=== PATIENT | female | born 1940 | race Two or more races ===

== ENCOUNTER 2018-09-26 09:26 | Inpatient (IN) | payer MEDICARE, MEDICAID ==
[~2018-09-26] VITALS: Ht 154.9 cm; Wt 83.0 kg
[2018-09-26] MEDS ORDERED: Sodium Chloride 500ML 500 ML IV ONE (09:47)
[2018-09-26 09:48] VITALS: BP 148/81
[2018-09-26] MEDS ORDERED: LORazepam Inj 2mg/ml 1ml IV ONE (10:00)
[2018-09-26 10:04] LABS: BASOPHILS % (AUTO) 0.6 % (0.0-2.0); EOSINOPHILS % (AUTO) 2.4 % (0.0-3.0); HEMATOCRIT 37.8 % (37.0-47.0); HEMOGLOBIN 12.6 G/DL (12.0-16.0); LYMPHOCYTES % (AUTO) 19.2 % (20.0-45.0); MEAN CORPUSCULAR VOLUME 87 FL (80-99); MONOCYTES % (AUTO) 6.9 % (1.0-10.0); PLATELET COUNT 142 K/UL (150-450); RED BLOOD COUNT 4.35 M/UL (4.20-5.40); RED CELL DISTRIBUTION WIDTH 13.9 % (11.6-14.8); WHITE BLOOD COUNT 5.5 K/UL (4.8-10.8)
--- NOTE | 2018-09-26 10:04 | Emergency Room Report ---
History of Present Illness General Chief Complaint: Multiple Trauma/Fall Source: Patient Present Illness HPI Patient presents with complaints of a fall Initially reports that she is to be seen by a female physician I did notify her that there is no other female physician on duty And that for the patient agree to evaluation and exam Patient is somewhat of a poor historian Reports that her knee gave out and she sustained a fall Patient also reports that she is at a boarding care facility And was brought in by private auto Denies any lapse of consciousness Patient feels extremely tremulous Has pain to the right knee and leg as well Along with the obvious facial trauma and discomfort Patient cannot provide medical history Cannot provide history of medications Allergies: Coded Allergies: No Known Allergies (Unverified , 09/26/18) Patient History Past Medical History: see triage record Pertinent Family History: none Last Menstrual Period: None Now: No Reviewed Nursing Documentation: PMH: Agreed; PSxH: Agreed Nursing Documentation-PMH Past Medical History: No Stated History Review of Systems All Other Systems: limited - Other than the ones mentioned in the history of present illness all others are reviewed however they do stay limited due to the patient's mental status Physical Exam Vital Signs Date Time Temp Pulse Resp B/P (MAP) Pulse Ox O2 Delivery O2 Flow Rate FiO2 09/26/18 09:35 97.5 71 22 143/108 100 Room Air 09/26/18 09:48 98 Sp02 EP Interpretation: reviewed, normal General Appearance: mild distress - Appears tremulous Head: other - Obvious trauma with laceration to the nasal bridge ENT: dry mucus membranes Neck: full range of motion, supple Respiratory: lungs clear, normal breath sounds, no retraction, no accessory muscle use Cardiovascular #1: regular rate, rhythm Gastrointestinal: non tender, soft Musculoskeletal: other - Moves both upper extremities equally, has tenderness palpated on the right knee and tib fib midline on the right side Neurologic: alert, oriented x3, responsive, other - Equal furniture sales consultant bilaterally, however has baseline tremor diffusely on all extremities Skin: other - Deep approximately 1 cm laceration nasal bridge Lymphatic: no adenopathy Procedures Laceration/Wound Repair Laceration/Wound Repair : Consent: Emergent Wound Location: face Wound's Depth, Shape: into muscle, irregular Wound Length (cm): 1 Wound Explored: contaminated Irrigated w/ Saline (ccs): 300 Betadine Prep?: Yes Anesthesia: 1% Lidocaine Volume Anesthetic (ccs): 3 Wound Debrided: moderate Wound Repaired With: sutures Suture Size/Type: 5:0 Number of Sutures: 4 Splint Applied?: No Patient Tolerated: Well Complications: None Medical Decision Making Diagnostic Impression: Primary Impression: Multiple injuries due to trauma Additional Impressions: Open nasal fracture Contusion Near syncope ER Course Patient is a fairly complex patient with multiple differential to consideration including but not limited to cardiac cardiopulmonary and vascular emergencies Given the patient's fairly moderate facial trauma Head CT along with facial CT was obtained as well There is obvious comminuted fracture complex involving the facial area Blood work otherwise is at benign levels Patient further hydrated Requiring specialty consultation and medicine coverage Plastic specialty has been contacted Labs Test 09/26/18 09:55 09/26/18 11:10 White Blood Count 5.5 K/UL (4.8-10.8) Red Blood Count 4.35 M/UL (4.20-5.40) Hemoglobin 12.6 G/DL (12.0-16.0) Hematocrit 37.8 % (37.0-47.0) Mean Corpuscular Volume 87 FL (80-99) Mean Corpuscular Hemoglobin 28.9 PG (27.0-31.0) Mean Corpuscular Hemoglobin Concent 33.2 G/DL (32.0-36.0) Red Cell Distribution Width 13.9 % (11.6-14.8) Platelet Count 142 K/UL (150-450) Mean Platelet Volume 5.9 FL (6.5-10.1) Neutrophils (%) (Auto) 71.0 % (45.0-75.0) Lymphocytes (%) (Auto) 19.2 % (20.0-45.0) Monocytes (%) (Auto) 6.9 % (1.0-10.0) Eosinophils (%) (Auto) 2.4 % (0.0-3.0) Basophils (%) (Auto) 0.6 % (0.0-2.0) Sodium Level 140 MMOL/L (136-145) Potassium Level 4.2 MMOL/L (3.5-5.1) Chloride Level 103 MMOL/L (98-107) Carbon Dioxide Level 28 MMOL/L (21-32) Anion Gap 10 mmol/L (5-15) Blood Urea Nitrogen 34 mg/dL (7-18) Creatinine 2.1 MG/DL (0.55-1.30) Estimat Glomerular Filtration Rate mL/min (>60) Glucose Level 132 MG/DL (74-106) Calcium Level 9.1 MG/DL (8.5-10.1) Total Bilirubin 0.6 MG/DL (0.2-1.0) Aspartate Amino Transf (AST/SGOT) 24 U/L (15-37) Alanine Aminotransferase (ALT/SGPT) 17 U/L (12-78) Alkaline Phosphatase 83 U/L (46-116) Total Creatine Kinase 124 U/L (26-308) Creatine Kinase MB 1.0 NG/ML (0.0-3.6) Creatine Kinase MB Relative Index 0.8 Troponin I 0.000 ng/mL (0.000-0.056) Total Protein 7.9 G/DL (6.4-8.2) Albumin 3.8 G/DL (3.4-5.0) Globulin 4.1 g/dL Albumin/Globulin Ratio 0.9 (1.0-2.7) Lipase 294 U/L (73-393) Urine Color Pale yellow Urine Appearance Clear Urine pH 5 (4.5-8.0) Urine Specific [place] 1.010 (1.005-1.035) Urine Protein 1+ (NEGATIVE) Urine Glucose (UA) Negative (NEGATIVE) Urine Ketones Negative (NEGATIVE) Urine Blood Negative (NEGATIVE) Urine Nitrite Negative (NEGATIVE) Urine Bilirubin Negative (NEGATIVE) Urine Urobilinogen Normal MG/DL (0.0-1.0) Urine Leukocyte Esterase Negative (NEGATIVE) Urine RBC 0 /HPF (0 - 2) Urine WBC 0 /HPF (0 - 2) Urine Squamous Epithelial Cells Occasional /LPF Urine Bacteria None /HPF (NONE) EKG Diagnostic Results Rate: normal Rhythm: NSR ST Segments: no acute changes Rhythm Strip Diag. Results EP Interpretation: yes Rate: 67 Rhythm: NSR, no PVC's, no ectopy Chest X-Ray Diagnostic Results Chest X-Ray Diagnostic Results : Chest X-Ray Ordered: Yes # of Views/Limited/Complete: 1 View Indication: Chest Pain EP Interpretation: Yes Interpretation: no consolidation, no effusion, no pneumothorax, other - Cardiomegaly, possible body habitus, cannot evaluate fully bilateral lower lungs Impression: No acute disease - Limited study Electronically Signed by: Christian Dillon DO Other X-Ray Diagnostic Results Other X-Ray Diagnostic Results #1: X-Ray ordered: Right tib fib # of Views/Limited Vs Complete: 2 View Indication: Pain EP Interpretation: Yes Interpretation: no dislocation, no soft tissue swelling, no fractures Impression: No acute disease - Significant previous history Electronically Signed by: Christian Dillon DO Other X-Ray Diagnostic Results #2: X-Ray ordered: Right knee # of Views/Limited Vs Complete: 4 View Indication: Pain EP Interpretation: Yes Interpretation: no dislocation, no soft tissue swelling, no fractures Impression: No acute disease Electronically Signed by: Christian Dillon DO CT/MRI/US Diagnostic Results CT/MRI/US Diagnostic Results : Impression CT headno acute disease CT facialIMPRESSION: Fracture of bilateral nasal bone and nasal process of the maxilla with extension into the nasal septum. Edema and blood is seen along the nasal septum. Last Vital Signs Date Time Temp Pulse Resp B/P (MAP) Pulse Ox O2 Delivery O2 Flow Rate FiO2 09/26/18 09:48 72 17 Room Air 98 09/26/18 09:48 97.5 148/81 98 Status: improved Disposition: ADMITTED INPATIENT Condition: Serious Referrals: NOT CHOSEN IPA/,REFERRING (PCP) Christian Dillon DO Sep 26, 2018 10:04
[2018-09-26 10:12] LABS: ANION GAP 10 mmol/L (5-15); BLOOD UREA NITROGEN 34 mg/dL (7-18); CALCIUM 9.1 MG/DL (8.5-10.1); CARBON DIOXIDE 28 MMOL/L (21-32); CHLORIDE 103 MMOL/L (98-107); CREATININE 2.1 MG/DL (0.55-1.30); POTASSIUM 4.2 MMOL/L (3.5-5.1); SODIUM 140 MMOL/L (136-145)
[2018-09-26 10:28] LABS: ALANINE AMINOTRANSFERASE 17 U/L (12-78); ALBUMIN 3.8 G/DL (3.4-5.0); ALBUMIN/GLOBULIN RATIO 0.9 (1.0-2.7); ALKALINE PHOSPHATASE 83 U/L (46-116); ASPARTATE AMINO TRANSFERASE 24 U/L (15-37); BILIRUBIN,TOTAL 0.6 MG/DL (0.2-1.0); CREATINE KINASE 124 U/L (26-308)
[2018-09-26] MEDS ORDERED: ceFAZolin 1gm/50ml Premix 50 ML IV ONE (11:00)
--- NOTE | 2018-09-26 11:14 | Diagnostic Imaging Report ---
INDICATION: Trauma TECHNIQUE: Multiple, contiguous 2.5 mm axial cuts of the brain are obtained from the posterior fossa to the cranial vault. Sagittal and coronal reformatted images provided. No IV contrast is administered. One or more of the following dose reduction techniques were used: automated exposure control, adjustment of the mA and/or kV according to patient size, use of iterative reconstruction technique. COMPARISON: None FINDINGS: No intracranial hemorrhage, abnormal intra- or extra-axial collections or parenchymal lesions are seen. There are involutional changes with prominence of the sulci, basal cisterns and ventricles. Scattered white matter hypoattenuations are present, likely from small vessel disease. The baca-white differentiation is preserved. No evidence of mass effect, midline shift, or edema. The osseous structures are unremarkable. The visualized portions of the paranasal sinuses are clear. Atherosclerotic vascular disease. IMPRESSION: 1. No acute intracranial process. 2. Involutional changes with small vessel disease. CTDI: 70.38 mGy DLP: 1298.45 mGycm
[2018-09-26 11:23] LABS: APPEARANCE,URINE CLEAR; BILIRUBIN, URINE NEGATIVE (NEGATIVE); COLOR,URINE PALE YELLOW; GLUCOSE, URINE (UA) NEGATIVE (NEGATIVE); KETONES,URINE NEGATIVE (NEGATIVE); LEUKOCYTE ESTERASE ,URINE NEGATIVE (NEGATIVE); NITRITE,URINE NEGATIVE (NEGATIVE); PH,URINE 5 (4.5-8.0); PROTEIN,URINE 1+ (NEGATIVE); UROBILINOGEN,URINE NORMAL MG/DL (0.0-1.0)
[2018-09-26] MEDS ORDERED: Hydrogen Peroxide 473ml Bottle TOPIC ONE (11:25)
--- NOTE | 2018-09-26 11:57 | Diagnostic Imaging Report ---
INDICATION: Trauma TECHNIQUE: Multiple, contiguous 2.5 mm axial cuts of the paranasal sinuses are obtained. Sagittal and coronal reformatted images are provided. No IV contrast is administered. COMPARISON: None FINDINGS: Fracture of bilateral nasal bone and nasal process of the maxilla with extension into the nasal septum. Edema and blood is seen along the nasal septum. The maxillary, ethmoid, sphenoid and frontal sinuses are clear bilaterally. There is no mucoperiosteal thickening or air-fluid levels. The osteomeatal units are well aerated bilaterally. The turbinates are normal. The nasal septum is midline. No bony erosions are seen. 5 mm ossific density at the left temporomandibular joint. Paranasal soft tissue swelling. IMPRESSION: Fracture of bilateral nasal bone and nasal process of the maxilla with extension into the nasal septum. Edema and blood is seen along the nasal septum. CTDI: 28.19 mGy DLP: 56.42 mGycm
[2018-09-26 12:07] VITALS: BP 126/71
--- NOTE | 2018-09-26 12:12 | Diagnostic Imaging Report ---
INDICATION: Chest pain COMPARISON: None FINDINGS: Single frontal view demonstrates prominent cardiac size. Hypoventilatory examination with compensatory compressive changes at the bases. No pleural effusions. The visualized osseous structures are within normal limits. IMPRESSION: Normal hypoventilatory examination.
--- NOTE | 2018-09-26 12:25 | Diagnostic Imaging Report ---
RIGHT TIB/FIB, 2 VIEWS INDICATION: Chest pain COMPARISON: None FINDINGS: 2 views of the right tibia and fibula are obtained. The patient is status post total knee arthroplasty. The hardware is radiographically intact. Stimulators are seen at the level distal femur. Bony structures are intact. Bone mineralization is within normal limits. Soft tissues within normal limits. No radio-opaque foreign bodies seen. IMPRESSION: Status post total knee arthroplasty. No acute fracture.
[2018-09-26 13:40] VITALS: BP 146/62
--- NOTE | 2018-09-26 13:58 | Diagnostic Imaging Report ---
RIGHT KNEE, Views INDICATION: Pain COMPARISON: None FINDINGS: 4 views of the right knee are obtained. Status post right knee total arthroplasty. Stimulator leads are seen in place. Hardware is radiographically intact. Bony structures are intact. Bone mineralization is within normal limits. Joint spaces are preserved. Soft tissues are within normal limits. No radio-opaque foreign bodies. IMPRESSION: Status post right knee total arthroplasty. Hardware is intact. No acute fracture or subluxation identified.
[2018-09-26] MEDS ORDERED: SEROQUEL50 MG ORAL (15:33)
[2018-09-26] MEDS ORDERED: OLANZAPINE7.5 MG ORAL (15:33)
[2018-09-26] MEDS ORDERED: POTASSIUM CHLO20 ME3 PO (15:33)
[2018-09-26] MEDS ORDERED: OXYCODONE H5 MG/5 ML ORAL (15:33)
[2018-09-26] MEDS ORDERED: OXYBUTYNIN CHLOR5 M1 ORAL (15:34)
[2018-09-26] MEDS ORDERED: PANTOPRAZOLE SO20 MG ORAL (15:35)
[2018-09-26] MEDS ORDERED: FAMOTIDINE20 MG ORAL (15:37)
[2018-09-26] MEDS ORDERED: MOBIC15 MG ORAL (15:37)
[2018-09-26] MEDS ORDERED: LISINOPRIL20 MG ORAL (15:37)
[2018-09-26] MEDS ORDERED: FUROSEMIDE40 MG ORAL (15:37)
[2018-09-26] MEDS ORDERED: GABAPENTIN400 MG ORAL (15:37)
[2018-09-26 16:00] VITALS: BP 122/89
[2018-09-26] MEDS: oxyCODONE 5mg IR tab ORAL PRN (17:13)
[2018-09-26] MEDS ORDERED: Bisacodyl EC 5mg tab ORAL PRN (17:45)
--- NOTE | 2018-09-26 18:06 | Cardiology Progress Note ---
Assessment/Plan Assessment/Plan The patient is seen and examined, full consult note will be dictated soon. Objective Last 24 Hour Vital Signs Date Time Temp Pulse Resp B/P (MAP) Pulse Ox O2 Delivery O2 Flow Rate FiO2 09/26/18 16:14 Room Air 09/26/18 16:00 97.9 74 20 122/89 (100) 95 09/26/18 16:00 68 09/26/18 13:40 97.0 77 20 146/62 (90) 97 09/26/18 13:27 74 09/26/18 13:18 97.7 69 27 147/88 100 Room Air 09/26/18 12:07 65 22 126/71 95 Room Air 09/26/18 09:48 72 17 Room Air 98 09/26/18 09:48 97.5 72 17 148/81 98 Room Air 09/26/18 09:35 97.5 71 22 143/108 100 Room Air Laboratory Tests Test 09/26/18 09:55 09/26/18 11:10 White Blood Count 5.5 K/UL (4.8-10.8) Red Blood Count 4.35 M/UL (4.20-5.40) Hemoglobin 12.6 G/DL (12.0-16.0) Hematocrit 37.8 % (37.0-47.0) Mean Corpuscular Volume 87 FL (80-99) Mean Corpuscular Hemoglobin 28.9 PG (27.0-31.0) Mean Corpuscular Hemoglobin Concent 33.2 G/DL (32.0-36.0) Red Cell Distribution Width 13.9 % (11.6-14.8) Platelet Count 142 K/UL (150-450) L Mean Platelet Volume 5.9 FL (6.5-10.1) L Neutrophils (%) (Auto) 71.0 % (45.0-75.0) Lymphocytes (%) (Auto) 19.2 % (20.0-45.0) L Monocytes (%) (Auto) 6.9 % (1.0-10.0) Eosinophils (%) (Auto) 2.4 % (0.0-3.0) Basophils (%) (Auto) 0.6 % (0.0-2.0) Sodium Level 140 MMOL/L (136-145) Potassium Level 4.2 MMOL/L (3.5-5.1) Chloride Level 103 MMOL/L (98-107) Carbon Dioxide Level 28 MMOL/L (21-32) Anion Gap 10 mmol/L (5-15) Blood Urea Nitrogen 34 mg/dL (7-18) H Creatinine 2.1 MG/DL (0.55-1.30) H Estimat Glomerular Filtration Rate mL/min (>60) Glucose Level 132 MG/DL (74-106) H Calcium Level 9.1 MG/DL (8.5-10.1) Total Bilirubin 0.6 MG/DL (0.2-1.0) Aspartate Amino Transf (AST/SGOT) 24 U/L (15-37) Alanine Aminotransferase (ALT/SGPT) 17 U/L (12-78) Alkaline Phosphatase 83 U/L (46-116) Total Creatine Kinase 124 U/L (26-308) Creatine Kinase MB 1.0 NG/ML (0.0-3.6) Creatine Kinase MB Relative Index 0.8 Troponin I 0.000 ng/mL (0.000-0.056) Total Protein 7.9 G/DL (6.4-8.2) Albumin 3.8 G/DL (3.4-5.0) Globulin 4.1 g/dL Albumin/Globulin Ratio 0.9 (1.0-2.7) L Lipase 294 U/L (73-393) Urine Color Pale yellow Urine Appearance Clear Urine pH 5 (4.5-8.0) Urine Specific [place] 1.010 (1.005-1.035) Urine Protein 1+ (NEGATIVE) H Urine Glucose (UA) Negative (NEGATIVE) Urine Ketones Negative (NEGATIVE) Urine Blood Negative (NEGATIVE) Urine Nitrite Negative (NEGATIVE) Urine Bilirubin Negative (NEGATIVE) Urine Urobilinogen Normal MG/DL (0.0-1.0) Urine Leukocyte Esterase Negative (NEGATIVE) Urine RBC 0 /HPF (0 - 2) Urine WBC 0 /HPF (0 - 2) Urine Squamous Epithelial Cells Occasional /LPF Urine Bacteria None /HPF (NONE) Christiano Robles MD Sep 26, 2018 18:06
[2018-09-26 20:00] VITALS: BP 116/78
[2018-09-26] MEDS ORDERED: Enoxaparin 40mg Inj SUBQ SCH (21:00)
[2018-09-27] VITALS: BP 102/58
--- NOTE | 2018-09-27 00:18 | History & Physical ---
History and Physical History & Physicial Patient is seen and examined. Dictation completed # ##[id number] Kamini Garcia MD Sep 27, 2018 00:18
--- NOTE | 2018-09-27 00:20 | General Progress Note ---
Assessment/Plan Assessment/Plan S: my nose hurts O: appears to have balance problem, Pain is well managed PHYSICAL EXAMINATION:HEAD AND NECK: Atraumatic and normocephalic. Positive for the posttraumatic fracture lines and changes in the nasal region.CHEST: Clear to auscultation. HEART: S1, S2. Regular rate and rhythm.ABDOMEN: Soft. No organomegaly. MUSCULOSKELETAL: No gross focal motor deficit. NEUROLOGIC: Awake, alert, and oriented x3. Meds: reviewed and reconciled in the chart ASSESSMENT: 1. Acute encephalopathy, likely possibility of the cardiovascular insufficiency. Sepsis cannot be excluded. 2. Renal failure, age indeterminate. 3. Hypertension. 4. Psychiatric disorder. 5. Abnormal blood sugar. 6. Thrombocytopenia. 7. Right-sided chronic knee pain. 8. GI and DVT prophylaxis. Plan: Will consult PT/OT high risk for fall Subjective Allergies: Coded Allergies: No Known Allergies (Unverified , 09/26/18) Objective Last 24 Hour Vital Signs Date Time Temp Pulse Resp B/P (MAP) Pulse Ox O2 Delivery O2 Flow Rate FiO2 09/26/18 21:00 Room Air 09/26/18 20:00 97.5 76 18 116/78 (91) 95 09/26/18 20:00 81 09/26/18 16:14 Room Air 09/26/18 16:00 97.9 74 20 122/89 (100) 95 09/26/18 16:00 68 09/26/18 13:40 97.0 77 20 146/62 (90) 97 09/26/18 13:27 74 09/26/18 13:18 97.7 69 27 147/88 100 Room Air 09/26/18 12:07 65 22 126/71 95 Room Air 09/26/18 09:48 72 17 Room Air 98 09/26/18 09:48 97.5 72 17 148/81 98 Room Air 09/26/18 09:35 97.5 71 22 143/108 100 Room Air Intake and Output 09/26/18 09/27/18 19:00 07:00 Intake Total 360 ml Balance 360 ml Intake Oral 360 ml # Voids 2 Laboratory Tests 09/26/18 09:55: White Blood Count 5.5, Red Blood Count 4.35, Hemoglobin 12.6, Hematocrit 37.8, Mean Corpuscular Volume 87, Mean Corpuscular Hemoglobin 28.9, Mean Corpuscular Hemoglobin Concent 33.2, Red Cell Distribution Width 13.9, Platelet Count 142L, Mean Platelet Volume 5.9L, Neutrophils (%) (Auto) 71.0, Lymphocytes (%) (Auto) 19.2L, Monocytes (%) (Auto) 6.9, Eosinophils (%) (Auto) 2.4, Basophils (%) (Auto ) 0.6, Sodium Level 140, Potassium Level 4.2, Chloride Level 103, Carbon Dioxide Level 28, Anion Gap 10, Blood Urea Nitrogen 34H, Creatinine 2.1H, Estimat Glomerular Filtration Rate , Glucose Level 132H, Calcium Level 9.1, Total Bilirubin 0.6, Aspartate Amino Transf (AST/SGOT) 24, Alanine Aminotransferase (ALT/SGPT) 17, Alkaline Phosphatase 83, Total Creatine Kinase 124, Creatine Kinase MB 1.0, Creatine Kinase MB Relative Index 0.8, Troponin I 0.000, Total Protein 7.9, Albumin 3.8, Globulin 4.1, Albumin/Globulin Ratio 0.9L , Lipase 294 09/26/18 11:10: Urine Color Pale yellow, Urine Appearance Clear, Urine pH 5, Urine Specific [place] 1.010, Urine Protein 1+H, Urine Glucose (UA) Negative, Urine Ketones Negative, Urine Blood Negative, Urine Nitrite Negative, Urine Bilirubin Negative , Urine Urobilinogen Normal, Urine Leukocyte Esterase Negative, Urine RBC 0, Urine WBC 0, Urine Squamous Epithelial Cells Occasional, Urine Bacteria None 09/26/18 20:34: Troponin I 0.000 Height (Feet): 5 Height (Inches): 1.00 Weight (Pounds): 183 Kamini Garcia MD Sep 27, 2018 00:20
--- NOTE | 2018-09-27 03:45 | History and Physical Report ---
DATE OF ADMISSION: 09/26/2018 SOURCE OF INFORMATION: The patient and EMR. HISTORY OF PRESENT ILLNESS: The patient is a 78-year-old female who presented with lightheadedness followed by hitting her head against an object. The patient denies any loss of consciousness. The patient denies any nausea, vomitus, diarrhea, constipation prior to this incident. The patient is complaining of pain in the right knee. REVIEW OF SYSTEMS: All 12 elements of review of systems reviewed. Pertinent positive and negative as above. PAST MEDICAL AND SURGICAL HISTORY: Right-sided knee surgeries, hypertension, chronic pain, urinary incontinence, psychiatric disorder. ALLERGIES: NKDA. FAMILY HISTORY: Reviewed, noncontributory. SOCIAL HISTORY: The patient lives by herself. Denies history of illicit drug abuse, smoking, or alcohol abuse. PHYSICAL EXAMINATION: VITAL SIGNS: Blood pressure 140/80, temperature 98.2, pulse oximetry 98% on room air, respiratory rate 18. HEAD AND NECK: Atraumatic and normocephalic. Positive for the posttraumatic fracture lines and changes in the nasal region. CHEST: Clear to auscultation. HEART: S1, S2. Regular rate and rhythm. ABDOMEN: Soft. No organomegaly. MUSCULOSKELETAL: No gross focal motor deficit. NEUROLOGIC: Awake, alert, and oriented x3. IMAGING: Chest x-ray dated September 26, is unremarkable. The CT scan of the head shows fracture of bilateral nasal bones and maxilla. The head CT done is negative for any active acute pathology in the cranium. LABORATORY DATA: Dated September 26 shows sodium 140, potassium 4.2, BUN 34, and creatinine 2.1. WBC 5.5, hemoglobin 12.6, platelet count of 142,000. ASSESSMENT: 1. Acute encephalopathy, likely possibility of the cardiovascular insufficiency. Sepsis cannot be excluded. 2. Renal failure, age indeterminate. 3. Hypertension. 4. Psychiatric disorder. 5. Abnormal blood sugar. 6. Thrombocytopenia. 7. Right-sided chronic knee pain. 8. GI and DVT prophylaxis. PLAN OF CARE: We will consult the Psychiatry, Nephrology, and Cardiology. We will resume the home medications. I will stop the Lasix, lisinopril, and potassium, and we will optimize medications. Kamini Garcia M.D. DR: Danial JOB#: [id number] CC:
[2018-09-27 04:00] VITALS: BP 115/74
[2018-09-27 07:48] LABS: BASOPHILS % (AUTO) 0.7 % (0.0-2.0); EOSINOPHILS % (AUTO) 1.6 % (0.0-3.0); HEMATOCRIT 35.6 % (37.0-47.0); LYMPHOCYTES % (AUTO) 23.4 % (20.0-45.0); MEAN CORPUSCULAR VOLUME 87 FL (80-99); MONOCYTES % (AUTO) 7.3 % (1.0-10.0); PLATELET COUNT 156 K/UL (150-450); RED BLOOD COUNT 4.12 M/UL (4.20-5.40); WHITE BLOOD COUNT 4.1 K/UL (4.8-10.8)
[2018-09-27 08:00] VITALS: BP 120/68
[2018-09-27 08:18] LABS: ANION GAP 8 mmol/L (5-15); BLOOD UREA NITROGEN 26 mg/dL (7-18); CALCIUM 9.3 MG/DL (8.5-10.1); CARBON DIOXIDE 33 MMOL/L (21-32); CHLORIDE 101 MMOL/L (98-107); CREATININE 1.4 MG/DL (0.55-1.30); POTASSIUM 4.2 MMOL/L (3.5-5.1); SODIUM 141 MMOL/L (136-145)
[2018-09-27] MEDS: Aspirin Baby 81mg ORAL SCH (08:20)
[2018-09-27] MEDS: Oxybutynin 5mg tab ORAL SCH (08:21)
[2018-09-27] MEDS: oxyCODONE 5mg IR tab ORAL PRN ×2 (08:23→17:37)
[2018-09-27] MEDS ORDERED: Meloxicam 15 MG TAB ORAL SCH (09:00)
[2018-09-27] MEDS ORDERED: Lisinopril 20mg tab ORAL SCH (09:00)
[2018-09-27] MEDS ORDERED: Furosemide 40mg tab ORAL SCH (09:00)
[2018-09-27] MEDS ORDERED: Enoxaparin 30mg Inj SUBQ SCH ×2 (09:00→21:00)
[2018-09-27 12:00] VITALS: BP 132/70
[2018-09-27 16:00] VITALS: BP 132/70
--- NOTE | 2018-09-27 19:47 | Cardiology Progress Note ---
Assessment/Plan Assessment/Plan 1. Pre-syncopal event likely due to furosemide, the patient denies syncope, continue hydration as it has helped renal function. 2D echo reveals normal LV systolic function as well as pulmonary artery pressure. 2. THEODORE, creat has improved, continue hydration, off lasix. 3. Psych disorder. Subjective Subjective Sinus rhythm at rate of 86. Objective Last 24 Hour Vital Signs Date Time Temp Pulse Resp B/P (MAP) Pulse Ox O2 Delivery O2 Flow Rate FiO2 09/27/18 16:00 97.3 86 18 132/70 (90) 97 09/27/18 16:00 74 09/27/18 12:00 99 09/27/18 12:00 97.3 86 18 132/70 (90) 97 09/27/18 09:00 Room Air 09/27/18 08:32 78 120/68 09/27/18 08:00 92 09/27/18 08:00 97.9 78 20 120/68 (85) 95 09/27/18 04:00 67 09/27/18 04:00 97.5 66 18 115/74 (88) 96 09/27/18 00:00 97.7 71 18 102/58 (73) 95 09/27/18 00:00 69 09/26/18 21:00 Room Air 09/26/18 20:00 97.5 76 18 116/78 (91) 95 09/26/18 20:00 81 Intake and Output 09/26/18 09/27/18 19:00 07:00 Intake Total 360 ml 480 ml Balance 360 ml 480 ml Intake Oral 360 ml 480 ml # Voids 2 2 2D Echo: LVEF 55%, Mild MR, RVSP 19 mmHg, Grade I LVDD Laboratory Tests Test 09/26/18 20:34 09/27/18 07:13 09/27/18 12:45 Troponin I 0.000 ng/mL (0.000-0.056) 0.000 ng/mL (0.000-0.056) 0.002 ng/mL (0.000-0.056) White Blood Count 4.1 K/UL (4.8-10.8) L Red Blood Count 4.12 M/UL (4.20-5.40) L Hemoglobin 12.0 G/DL (12.0-16.0) Hematocrit 35.6 % (37.0-47.0) L Mean Corpuscular Volume 87 FL (80-99) Mean Corpuscular Hemoglobin 29.2 PG (27.0-31.0) Mean Corpuscular Hemoglobin Concent 33.8 G/DL (32.0-36.0) Red Cell Distribution Width 14.0 % (11.6-14.8) Platelet Count 156 K/UL (150-450) Mean Platelet Volume 7.5 FL (6.5-10.1) Neutrophils (%) (Auto) 67.0 % (45.0-75.0) Lymphocytes (%) (Auto) 23.4 % (20.0-45.0) Monocytes (%) (Auto) 7.3 % (1.0-10.0) Eosinophils (%) (Auto) 1.6 % (0.0-3.0) Basophils (%) (Auto) 0.7 % (0.0-2.0) Sodium Level 141 MMOL/L (136-145) Potassium Level 4.2 MMOL/L (3.5-5.1) Chloride Level 101 MMOL/L (98-107) Carbon Dioxide Level 33 MMOL/L (21-32) H Anion Gap 8 mmol/L (5-15) Blood Urea Nitrogen 26 mg/dL (7-18) H Creatinine 1.4 MG/DL (0.55-1.30) H Estimat Glomerular Filtration Rate mL/min (>60) Glucose Level 117 MG/DL (74-106) H Calcium Level 9.3 MG/DL (8.5-10.1) Objective HEENT: Atraumatic and normocephalic, stitches over the nasal bridge, bruised aarti-orbital region. NECK: No JVD, no carotid bruit. CHEST: Clear to auscultation. HEART: S1, S2. Regular rate and rhythm, no murmurs, gallops or rubs. ABDOMEN: Soft. No organomegaly, non-tender, non-distended. MUSCULOSKELETAL: No edema, clubbing or cyanosis. NEUROLOGIC: Awake, alert, and oriented x3. Christiano Robles MD Sep 27, 2018 19:47
[2018-09-27 20:00] VITALS: BP 119/68
--- NOTE | 2018-09-27 22:15 | Consultation ---
DATE OF CONSULTATION: 09/26/2018 CARDIOLOGY CONSULTATION CONSULTING PHYSICIAN: Christiano Robles M.D. REFERRING PHYSICIAN: Kamini Garcia M.D. REASON FOR CONSULTATION: Management of presyncope. HISTORY OF PRESENT ILLNESS: The patient is a very unfortunate 78-year-old female who presented to the hospital after sustaining a fall. She states that she was at [facility] when suddenly her right knee gave out on her and that caused her to fall against the ground and injured the left side of her chest as well as the facial area. She denies any loss of consciousness. At the time of arrival to the hospital, she was extremely tremulous and had pain over right knee and leg as well. In the emergency department, initial blood pressure was 143/108 mmHg and heart rate of 71. A 12-lead electrocardiogram was significant for sinus rhythm at rate of 67 with no acute ischemic changes. CT of head done in the emergency department revealed no acute intracranial process. Her chest x-ray was also unremarkable. She was admitted to telemetry for further evaluation and management. Cardiology consultation was made at request of Dr. Garcia for assessment and management of presyncope. PAST MEDICAL HISTORY: 1. Chronic pain syndrome. 2. Urinary incontinence. 3. Psychiatric disorder. 4. Hypertension. PAST SURGICAL HISTORY: Right knee surgeries in the past. ALLERGIES: No known drug allergies. FAMILY HISTORY: No premature coronary artery disease in the first-degree relatives. SOCIAL HISTORY: She is a resident of [facility]. Denies any current use of tobacco, alcohol, or illicit drug use, but in the past, she has been using cocaine. REVIEW OF SYSTEMS: HEENT: Denies any headache, diplopia, or blurred vision. She had pain as a result of facial trauma. CONSTITUTIONAL: Denies any fever, chills, night sweats, or weight loss. CARDIOVASCULAR: Some chest pain, which may be chest wall pain, but no shortness of breath, PND, orthopnea, leg swelling, or palpitation. She denies any syncope, although she had lightheadedness and dizziness at the time of presentation to this hospital. PULMONARY: Denies any cough, hemoptysis, or wheezing. GASTROINTESTINAL: Denies any nausea, vomiting, diarrhea, constipation, abdominal pain, or GI bleed. GENITOURINARY: Denies any hematuria, dysuria, or incontinence. NEUROLOGY: Denies any motor dysfunction, sensory deficit, or altered speech. MUSCULOSKELETAL: Complaining of right knee pain. MEDICATIONS: List of medications in the board and care facility includes furosemide 40 mg p.o. daily, famotidine 20 mg p.o. twice daily, gabapentin 400 mg three times a day, lisinopril 20 mg p.o. daily, meloxicam 15 mg p.o. daily, olanzapine 7.5 mg daily, oxybutynin chloride 10 mg p.o. daily, oxycodone hydrochloride 10 mL p.o. q.6 h., pantoprazole 40 mg p.o. daily, potassium chloride 20 mEq daily, and Seroquel 50 mg p.o. twice daily. PHYSICAL EXAMINATION: VITAL SIGNS: Blood pressure at the time of arrival to the hospital 143/108, pulse of 71, respirations 22, temperature 97.5 degrees Fahrenheit, and O2 saturation 100% on room air. GENERAL: The patient is a very unfortunate 78-year-old female, who is in no apparent respiratory distress. Awake and alert. HEENT: Atraumatic and normocephalic. Anicteric. Pupils are equal, round, and reactive to light and accommodation. Extraocular muscles intact. There is laceration in the nasal bridge. NECK: JVP less than 5 cm. No carotid bruit. Carotid upstroke is 2+ bilaterally. Dry mucosal membranes. CARDIOVASCULAR: Normal S1 and S2. Regular rate and rhythm. No murmurs, gallops, or rubs. LUNGS: Clear to auscultation bilaterally. ABDOMEN: Soft, nontender, and nondistended. No hepatosplenomegaly. Positive bowel sounds. EXTREMITIES: Tenderness over the right knee. There is some tremors. No evidence of edema, clubbing, or cyanosis of lower extremities. LABORATORY FINDINGS: WBC 5.5, hemoglobin 12.6, hematocrit 37.8, and platelet count is 142,000. Sodium 140, potassium is 4.2, chloride 103, bicarbonate 28, BUN of 34, creatinine 2.1, glucose 132, and calcium is 9.1. Troponin I was negative. ASSESSMENT AND PLAN: The patient is a very unfortunate 78-year-old female, seen in Cardiology consultation. 1. Presyncope in view of lightheadedness and also being on Lasix therapy, I would suspect hypovolemia as the cause. I will recommend putting a hold on the diuretic. 1.1. The patient will require hydration as well. We will obtain carotid artery ultrasound as well as assessing LV systolic and diastolic function with 2D echocardiography. Orthostatic vitals can also help to rule out hypovolemia. 2. Renal failure, acute versus chronic. A fluid challenge. Holding furosemide. 3. History of hypertension. agree with amlodipine. I would also consider discontinuation of meloxicam. I would like to thank, Dr. Garcia, for allowing me to participate in the care of this patient. Chrsitiano Robles M.D. DR: MILA JOB#: [id number] CC:
[2018-09-28] MEDS: oxyCODONE 5mg IR tab ORAL PRN ×2 (02:18→19:12)
[2018-09-28 04:00] VITALS: BP 111/74
[2018-09-28 08:00] VITALS: BP 133/73
[2018-09-28 09:18] LABS: BASOPHILS % (AUTO) 1.4 % (0.0-2.0); EOSINOPHILS % (AUTO) 2.3 % (0.0-3.0); HEMATOCRIT 37.2 % (37.0-47.0); HEMOGLOBIN 12.6 G/DL (12.0-16.0); LYMPHOCYTES % (AUTO) 22.2 % (20.0-45.0); MEAN CORPUSCULAR VOLUME 87 FL (80-99); MONOCYTES % (AUTO) 6.7 % (1.0-10.0); NEUTROPHILS % (AUTO) 67.5 % (45.0-75.0); PLATELET COUNT 169 K/UL (150-450); RED BLOOD COUNT 4.26 M/UL (4.20-5.40); RED CELL DISTRIBUTION WIDTH 13.7 % (11.6-14.8); WHITE BLOOD COUNT 3.9 K/UL (4.8-10.8)
[2018-09-28] MEDS: Aspirin Baby 81mg ORAL SCH (09:18)
[2018-09-28] MEDS: Oxybutynin 5mg tab ORAL SCH (09:20)
[2018-09-28 09:21] LABS: ANION GAP 8 mmol/L (5-15); BLOOD UREA NITROGEN 20 mg/dL (7-18); CALCIUM 9.1 MG/DL (8.5-10.1); CARBON DIOXIDE 29 MMOL/L (21-32); CHLORIDE 102 MMOL/L (98-107); CREATININE 1.1 MG/DL (0.55-1.30); POTASSIUM 4.1 MMOL/L (3.5-5.1); SODIUM 139 MMOL/L (136-145)
--- NOTE | 2018-09-28 11:12 | Physician Query ---
--------- THIS DOCUMENT IS A PERMANENT PART OF THE MEDICAL RECORD --------- PLEASE COMPLETE THE DOCUMENT BEFORE SIGNING Dear Dr. Garcia Date: Pelt Salter/CDS Name: Humera Do Pelt Salter / CDS Phone # [phone] Exercise your independent professional judgment when responding to query. Question asked do not imply a particular answer is desired/expected Clinical Documentation States: "Renal Failure" documented in H&P and progress notes Clinical Findings Show: Creatinine: 2.1, 1.4, 1.1, BUN: 34,26,20 Medications: IV fluids Please Clarify the type of renal failure below: Etiology [] ARF w/ Tubular Necrosis [] ARF w/ Cortical Necrosis [] ARF w/ Medullary Necrosis [x] Acute Renal Failure (unspecified) [] Other: [] Clinically Undeterminable If Chronic, please specify the stage: [] CKD Stage 1 [] CKD Stage 2 [] CKD Stage 3 [] CKD Stage 4 [] CKD Stage 5 [] ESRD [x] Not applicable Condition Present on Admission: [x] Yes [] No [] Clinically Undeterminable Please also document in your Progress Notes and/or Discharge Summary and indicate if the condition was present on admission. Dr Garcia___ Maira LOBO
[2018-09-28 12:00] VITALS: BP 111/91
--- NOTE | 2018-09-28 12:17 | Consultation ---
History of Present Illness General Chief Complaint: Multiple Trauma/Fall Present Illness HPI 78-year-old female who presented with lightheadedness followed by hitting her head against the edge of the table. The pt was somewhat confused and anxious the pt was a poor historian and was unable to remember the incident clearly. Allergies: Coded Allergies: No Known Allergies (Unverified , 09/26/18) Medication History Scheduled Famotidine (Famotidine), 20 MG ORAL TWICE A DAY, (Reported) Furosemide* (Lasix*), 40 MG ORAL DAILY, (Reported) Gabapentin* (Gabapentin*), 400 MG ORAL THREE TIMES A DAY, (Reported) Lisinopril (Lisinopril*), 20 MG ORAL DAILY, (Reported) Meloxicam* (Mobic*), 15 MG ORAL DAILY, (Reported) Olanzapine (Olanzapine), 7.5 MG ORAL DAILY, (Reported) Oxybutynin Chloride (Oxybutynin Chloride), 10 MG ORAL DAILY, (Reported) Oxycodone Hcl (Oxycodone Hcl), 10 ML ORAL Q6HR, (Reported) Pantoprazole (Pantoprazole), 40 MG ORAL DAILY, (Reported) Potassium Chloride (Potassium Chloride), 20 MEQ PO DAILY, (Reported) Quetiapine Fumarate (Seroquel), 50 MG ORAL TWICE A DAY, (Reported) Patient History Limited by: medical condition History Provided By: Patient, Medical Record, PMD Healthcare decision maker Resuscitation status Full Code Advanced Directive on File No Past Medical/Surgical History Past Medical/Surgical History: (1) Facial trauma (2) Fall Review of Systems Psychiatric: Reports: prior hx, anxiety, depressed feelings, emotional problems Physical Exam General Appearance: alert, confused, agitated Last 24 Hour Vital Signs Date Time Temp Pulse Resp B/P (MAP) Pulse Ox O2 Delivery O2 Flow Rate FiO2 09/28/18 09:20 82 133/73 09/28/18 09:00 Room Air 09/28/18 08:00 83 09/28/18 08:00 97.6 82 18 133/73 (93) 96 09/28/18 04:00 97.2 87 18 111/74 (86) 96 09/28/18 04:00 86 09/28/18 00:00 70 09/27/18 21:00 Room Air 09/27/18 20:00 66 09/27/18 20:00 96.6 67 18 119/68 (85) 93 09/27/18 16:00 97.3 86 18 132/70 (90) 97 09/27/18 16:00 74 Intake and Output 09/27/18 09/28/18 18:59 06:59 Intake Total 360 ml 300 ml Balance 360 ml 300 ml Intake Oral 360 ml 300 ml # Voids 2 Laboratory Tests Test 09/27/18 12:45 09/28/18 08:55 Troponin I 0.002 ng/mL (0.000-0.056) White Blood Count 3.9 K/UL (4.8-10.8) L Red Blood Count 4.26 M/UL (4.20-5.40) Hemoglobin 12.6 G/DL (12.0-16.0) Hematocrit 37.2 % (37.0-47.0) Mean Corpuscular Volume 87 FL (80-99) Mean Corpuscular Hemoglobin 29.6 PG (27.0-31.0) Mean Corpuscular Hemoglobin Concent 33.9 G/DL (32.0-36.0) Red Cell Distribution Width 13.7 % (11.6-14.8) Platelet Count 169 K/UL (150-450) Mean Platelet Volume 7.0 FL (6.5-10.1) Neutrophils (%) (Auto) 67.5 % (45.0-75.0) Lymphocytes (%) (Auto) 22.2 % (20.0-45.0) Monocytes (%) (Auto) 6.7 % (1.0-10.0) Eosinophils (%) (Auto) 2.3 % (0.0-3.0) Basophils (%) (Auto) 1.4 % (0.0-2.0) Sodium Level 139 MMOL/L (136-145) Potassium Level 4.1 MMOL/L (3.5-5.1) Chloride Level 102 MMOL/L (98-107) Carbon Dioxide Level 29 MMOL/L (21-32) Anion Gap 8 mmol/L (5-15) Blood Urea Nitrogen 20 mg/dL (7-18) H Creatinine 1.1 MG/DL (0.55-1.30) Estimat Glomerular Filtration Rate mL/min (>60) Glucose Level 124 MG/DL (74-106) H Calcium Level 9.1 MG/DL (8.5-10.1) Height (Feet): 5 Height (Inches): 1.00 Weight (Pounds): 183 Medications Current Medications Medications (Trade) Dose Ordered Sig/Ainsley Route PRN Reason Start Time Stop Time Status Last Admin Dose Admin Amlodipine Besylate (Norvasc) 5 mg DAILY ORAL 09/27/18 09:00 10/27/18 08:59 09/28/18 09:20 Aspirin (ASA) 81 mg DAILY ORAL 09/27/18 09:00 10/27/18 08:59 09/28/18 09:18 Bisacodyl (Dulcolax) 5 mg DAILYPRN PRN ORAL Constipation 09/26/18 17:45 10/26/18 17:44 09/26/18 17:57 Enoxaparin Sodium (Lovenox) 40 mg Q24H SUBQ 09/28/18 21:00 10/28/18 20:59 Famotidine (Pepcid) 20 mg BID ORAL 09/26/18 18:00 10/26/18 17:59 09/28/18 09:18 Gabapentin (Neurontin) 400 mg THREE TIMES A DAY ORAL 09/26/18 18:00 10/26/18 17:59 09/28/18 09:20 Olanzapine (ZyPREXA) 7.5 mg DAILY ORAL 09/27/18 09:00 10/27/18 08:59 09/28/18 09:19 Oxybutynin Chloride (Ditropan) 5 mg DAILY ORAL 09/27/18 09:00 10/27/18 08:59 09/28/18 09:20 Oxycodone HCl (Roxicodone) 10 mg Q6H PRN ORAL Breakthrough Pain 09/26/18 16:15 10/03/18 16:14 09/28/18 02:18 Quetiapine Fumarate (SEROquel) 50 mg Q12HR ORAL 09/26/18 21:00 10/26/18 20:59 09/28/18 09:19 Assessment/Plan Problem List: (1) Head trauma ICD Codes: S09.90XA - Unspecified injury of head, initial encounter SNOMED: 59139884 (2) Encephalopathy acute ICD Codes: G93.40 - Encephalopathy, unspecified SNOMED: 39832789, 367191569 Assessment/Plan seroquel prn Sirena Oviedo MD Sep 28, 2018 12:17
--- NOTE | 2018-09-28 12:51 | Consultation ---
History of Present Illness General Date patient seen: Sep 28, 2018 Chief Complaint: Multiple Trauma/Fall Reason for Consultation: facial trauma Present Illness HPI 78F s/p fall with facial fracture. Came to ED for evaluation at which time noted to have nasal fracture with large laceration. had appropriate temporary repair in ED with good reapproximation of laceration. since admitted for care. surgery called to evaluate to ensure care of laceration and wound during hospital stay and trauma eval. Allergies: Coded Allergies: No Known Allergies (Unverified , 09/26/18) Medication History Scheduled Famotidine (Famotidine), 20 MG ORAL TWICE A DAY, (Reported) Furosemide* (Lasix*), 40 MG ORAL DAILY, (Reported) Gabapentin* (Gabapentin*), 400 MG ORAL THREE TIMES A DAY, (Reported) Lisinopril (Lisinopril*), 20 MG ORAL DAILY, (Reported) Meloxicam* (Mobic*), 15 MG ORAL DAILY, (Reported) Olanzapine (Olanzapine), 7.5 MG ORAL DAILY, (Reported) Oxybutynin Chloride (Oxybutynin Chloride), 10 MG ORAL DAILY, (Reported) Oxycodone Hcl (Oxycodone Hcl), 10 ML ORAL Q6HR, (Reported) Pantoprazole (Pantoprazole), 40 MG ORAL DAILY, (Reported) Potassium Chloride (Potassium Chloride), 20 MEQ PO DAILY, (Reported) Quetiapine Fumarate (Seroquel), 50 MG ORAL TWICE A DAY, (Reported) Patient History History Provided By: Patient, Medical Record, PMD Healthcare decision maker Resuscitation status Full Code Advanced Directive on File No Past Medical/Surgical History Past Medical/Surgical History: (1) Contusion (2) Near syncope (3) Open nasal fracture (4) Multiple injuries due to trauma (5) Facial trauma (6) Fall Review of Systems All Other Systems: negative except mentioned in HPI Physical Exam General Appearance: no apparent distress, alert Lines, tubes and drains: peripheral HEENT: mucous membranes moist, other - 3cm linear nasal bridge laceration, tender, no signs of infection, sutures in place. Neck: normal inspection Respiratory/Chest: normal breath sounds Cardiovascular/Chest: normal rate, regular rhythm Abdomen: soft, no organomegaly, no mass Extremities: normal inspection Skin Exam: warm/dry Neurologic: alert, oriented x 3 Last 24 Hour Vital Signs Date Time Temp Pulse Resp B/P (MAP) Pulse Ox O2 Delivery O2 Flow Rate FiO2 09/28/18 09:20 82 133/73 09/28/18 09:00 Room Air 09/28/18 08:00 83 09/28/18 08:00 97.6 82 18 133/73 (93) 96 09/28/18 04:00 97.2 87 18 111/74 (86) 96 09/28/18 04:00 86 09/28/18 00:00 70 09/27/18 21:00 Room Air 09/27/18 20:00 66 09/27/18 20:00 96.6 67 18 119/68 (85) 93 09/27/18 16:00 97.3 86 18 132/70 (90) 97 09/27/18 16:00 74 Intake and Output 09/27/18 09/28/18 18:59 06:59 Intake Total 360 ml 300 ml Balance 360 ml 300 ml Intake Oral 360 ml 300 ml # Voids 2 Laboratory Tests Test 09/28/18 08:55 White Blood Count 3.9 K/UL (4.8-10.8) L Red Blood Count 4.26 M/UL (4.20-5.40) Hemoglobin 12.6 G/DL (12.0-16.0) Hematocrit 37.2 % (37.0-47.0) Mean Corpuscular Volume 87 FL (80-99) Mean Corpuscular Hemoglobin 29.6 PG (27.0-31.0) Mean Corpuscular Hemoglobin Concent 33.9 G/DL (32.0-36.0) Red Cell Distribution Width 13.7 % (11.6-14.8) Platelet Count 169 K/UL (150-450) Mean Platelet Volume 7.0 FL (6.5-10.1) Neutrophils (%) (Auto) 67.5 % (45.0-75.0) Lymphocytes (%) (Auto) 22.2 % (20.0-45.0) Monocytes (%) (Auto) 6.7 % (1.0-10.0) Eosinophils (%) (Auto) 2.3 % (0.0-3.0) Basophils (%) (Auto) 1.4 % (0.0-2.0) Sodium Level 139 MMOL/L (136-145) Potassium Level 4.1 MMOL/L (3.5-5.1) Chloride Level 102 MMOL/L (98-107) Carbon Dioxide Level 29 MMOL/L (21-32) Anion Gap 8 mmol/L (5-15) Blood Urea Nitrogen 20 mg/dL (7-18) H Creatinine 1.1 MG/DL (0.55-1.30) Estimat Glomerular Filtration Rate mL/min (>60) Glucose Level 124 MG/DL (74-106) H Calcium Level 9.1 MG/DL (8.5-10.1) Height (Feet): 5 Height (Inches): 1.00 Weight (Pounds): 183 Medications Current Medications Medications (Trade) Dose Ordered Sig/Ainsley Route PRN Reason Start Time Stop Time Status Last Admin Dose Admin Amlodipine Besylate (Norvasc) 5 mg DAILY ORAL 09/27/18 09:00 10/27/18 08:59 09/28/18 09:20 Aspirin (ASA) 81 mg DAILY ORAL 09/27/18 09:00 10/27/18 08:59 09/28/18 09:18 Bisacodyl (Dulcolax) 5 mg DAILYPRN PRN ORAL Constipation 09/26/18 17:45 10/26/18 17:44 09/26/18 17:57 Enoxaparin Sodium (Lovenox) 40 mg Q24H SUBQ 09/28/18 21:00 10/28/18 20:59 Famotidine (Pepcid) 20 mg BID ORAL 09/26/18 18:00 10/26/18 17:59 09/28/18 09:18 Gabapentin (Neurontin) 400 mg THREE TIMES A DAY ORAL 09/26/18 18:00 10/26/18 17:59 09/28/18 09:20 Olanzapine (ZyPREXA) 7.5 mg DAILY ORAL 09/27/18 09:00 10/27/18 08:59 09/28/18 09:19 Oxybutynin Chloride (Ditropan) 5 mg DAILY ORAL 09/27/18 09:00 10/27/18 08:59 09/28/18 09:20 Oxycodone HCl (Roxicodone) 10 mg Q6H PRN ORAL Breakthrough Pain 09/26/18 16:15 10/03/18 16:14 09/28/18 02:18 Quetiapine Fumarate (SEROquel) 50 mg Q12HR ORAL 09/26/18 21:00 10/26/18 20:59 09/28/18 09:19 Assessment/Plan Problem List: (1) Fall ICD Codes: W19.XXXA - Unspecified fall, initial encounter SNOMED: 0456015, [id number] Qualifiers: Qualified Codes: W19.XXXA - Unspecified fall, initial encounter (2) Facial trauma Assessment & Plan: nasal fracture with 3cm laceration to nasal bridge s/p lac repair in ED wound looks clean and healing well there is expected edema and bruising which will heal no signs of infection -cont current care -was wound daily and prn with shower or soap and water -instructed not to pick at sutures -sutures will be ready for removal in a few day -will need to allow for edema/swelling to improve then outpatient nasal fx repair if desired thank you for this consultation. will follow with you ICD Codes: S09.93XA - Unspecified injury of face, initial encounter SNOMED: 505887444 Qualifiers: Qualified Codes: S09.93XA - Unspecified injury of face, initial encounter Status: stable SouravkhushbooyogeshpareshMikhail Sep 28, 2018 12:51
[2018-09-28 16:00] VITALS: BP 118/68
--- NOTE | 2018-09-28 16:22 | General Progress Note ---
Assessment/Plan Assessment/Plan S: I cant walk straight O: appears to have balance problem, Pain is well managed. high risk for fall PHYSICAL EXAMINATION:HEAD AND NECK: Laceration in the Nasal Septum. Positive for the posttraumatic fracture lines and changes in the nasal region.CHEST: Clear to auscultation. HEART: S1, S2. Regular rate and rhythm.ABDOMEN: Soft. No organomegaly. MUSCULOSKELETAL: Wide gate . lack of coordination NEUROLOGIC: Awake, alert, and oriented x3. Meds: reviewed and reconciled in the chart ASSESSMENT: 1. Acute encephalopathy, likely possibility of the cardiovascular insufficiency. 2. Renal failure, age indeterminate. 3. Hypertension. 4. Psychiatric disorder. 5. Abnormal blood sugar. 6. Thrombocytopenia. 7. Right-sided chronic knee pain. 8. GI and DVT prophylaxis. Plan: Pending Plastic surgeon eval SNIF placement , once medically stable high risk for fall Subjective Allergies: Coded Allergies: No Known Allergies (Unverified , 09/26/18) Objective Last 24 Hour Vital Signs Date Time Temp Pulse Resp B/P (MAP) Pulse Ox O2 Delivery O2 Flow Rate FiO2 09/28/18 09:20 82 133/73 09/28/18 09:00 Room Air 09/28/18 08:00 83 09/28/18 08:00 97.6 82 18 133/73 (93) 96 09/28/18 04:00 97.2 87 18 111/74 (86) 96 09/28/18 04:00 86 09/28/18 00:00 70 09/27/18 21:00 Room Air 09/27/18 20:00 66 09/27/18 20:00 96.6 67 18 119/68 (85) 93 Intake and Output 09/27/18 09/28/18 18:59 06:59 Intake Total 360 ml 300 ml Balance 360 ml 300 ml Intake Oral 360 ml 300 ml # Voids 2 Laboratory Tests 09/28/18 08:55: White Blood Count 3.9L, Red Blood Count 4.26, Hemoglobin 12.6, Hematocrit 37.2, Mean Corpuscular Volume 87, Mean Corpuscular Hemoglobin 29.6, Mean Corpuscular Hemoglobin Concent 33.9, Red Cell Distribution Width 13.7, Platelet Count 169, Mean Platelet Volume 7.0, Neutrophils (%) (Auto) 67.5, Lymphocytes (%) (Auto) 22.2, Monocytes (%) (Auto) 6.7, Eosinophils (%) (Auto) 2.3, Basophils (%) (Auto ) 1.4, Sodium Level 139, Potassium Level 4.1, Chloride Level 102, Carbon Dioxide Level 29, Anion Gap 8, Blood Urea Nitrogen 20H, Creatinine 1.1, Estimat Glomerular Filtration Rate , Glucose Level 124H, Calcium Level 9.1 Height (Feet): 5 Height (Inches): 1.00 Weight (Pounds): 183 Kamini Garcia MD Sep 28, 2018 16:22
[2018-09-28 20:00] VITALS: BP 119/76
[2018-09-28] MEDS ORDERED: Bisacodyl EC 5mg tab ORAL PRN (20:45)
[2018-09-28] MEDS ORDERED: Enoxaparin 40mg Inj SUBQ SCH (21:00)
--- NOTE | 2018-09-28 23:15 | Consultation ---
DATE OF CONSULTATION: 09/28/2018 CONSULTING PHYSICIAN: Silvino Glynn M.D. REASON FOR CONSULTATION: Nasal fracture. HISTORY OF PRESENT ILLNESS: The patient is a 78-year-old female who presented with lightheadedness followed by hitting her head against the edge of the table. Denies any loss of consciousness. Denies any other issues associated with that except for pain in her right knee. REVIEW OF SYSTEMS: Normal, except as noted above. PAST MEDICAL HISTORY: Hypertension, chronic pain, urinary incontinence, and psychiatric disorder. PAST SURGICAL HISTORY: Right-sided knee surgery. ALLERGIES: No known drug allergies. FAMILY HISTORY: Noncontributory. SOCIAL HISTORY: The patient lives by herself. Does not smoke, drink, or use alcohol. Denies any history of illicit drug use. PHYSICAL EXAMINATION: GENERAL: The patient is comfortable, walking around in her room, in no acute distress. HEENT: Head is normocephalic and atraumatic except for bruising and swelling around the nose and malar areas. Scalp has no lacerations. No bony step-offs. Pupils are equal, round, and reactive to light. Extraocular motions are equal and symmetric bilaterally. There is bruising and swelling around the nose and under her eyes, but there is a laceration across the bridge of the nose, had been suture closed. Her dentition appears normal. No masses intranasally. The septum is deviated and the bridge of the nose is flattened. The turbinates are edematous as well as the mucosa. NECK: Supple. No JVD. CHEST: Clear to auscultation. No wheezes, rales, or crackles. CARDIOVASCULAR: Normal S1 and S2. No murmurs, rubs, or gallops. ABDOMEN: Soft, nontender, and nondistended without rebound or rigidity. MUSCULOSKELETAL: No gross motor deficits. NEUROVASCULAR: Intact throughout. No gross deformities. IMAGING: CT scan of the head shows a displaced comminuted fracture of the bridge of the nose with collapse and deviated nasal septum. ASSESSMENT AND PLAN: The patient is a 78-year-old female with open fracture of the nose with laceration that has already been repaired in the ER, now had deviated septum and comminuted fracture of the nasal bridge. Her current condition was discussed with the patient. She understands that she has a fracture that needs reduction. She wants this to be done under sedation or anesthesia so she does not feel any pain. Risks, benefits, and alternatives were discussed with her. She understands and agrees to proceed. Silvino Glynn M.D. DR: JONG JOB#: [id number] CC:
[2018-09-29] VITALS (16 sets, daily range): BP systolic 111–159; BP diastolic 60–100
--- NOTE | 2018-09-29 05:28 | Cardiology Progress Note ---
Assessment/Plan Assessment/Plan LATE ENTRY PROGRESS NOTE: DOS: SEP 28, 2017 TIME THE PATIENT SEEN: 12:53pm 1. Pre-syncopal event likely due to volume loss due to furosemide, the patient denies syncope, continue hydration as it has helped renal function. 2D echo reveals normal LV systolic function as well as pulmonary artery pressure. 2. THEODORE, resolved, continue hydration, off lasix. 3. Psych disorder. Subjective Subjective Sinus rhythm at rate of 81. Objective Last 24 Hour Vital Signs Date Time Temp Pulse Resp B/P (MAP) Pulse Ox O2 Delivery O2 Flow Rate FiO2 09/29/18 00:00 97.6 75 18 111/80 (90) 96 09/28/18 21:00 Room Air 09/28/18 20:00 97.2 80 18 119/76 (90) 95 09/28/18 16:00 86 09/28/18 16:00 97.1 84 18 118/68 (85) 95 09/28/18 12:00 81 09/28/18 12:00 97.3 91 18 111/91 (98) 95 09/28/18 09:20 82 133/73 09/28/18 09:00 Room Air 09/28/18 08:00 83 09/28/18 08:00 97.6 82 18 133/73 (93) 96 Intake and Output 09/28/18 09/29/18 19:00 07:00 Intake Total 730 ml Balance 730 ml Intake Oral 730 ml # Voids 4 2D Echo: LVEF 55%, Mild MR, RVSP 19 mmHg, Grade I LVDD Laboratory Tests Test 09/28/18 08:55 White Blood Count 3.9 K/UL (4.8-10.8) L Red Blood Count 4.26 M/UL (4.20-5.40) Hemoglobin 12.6 G/DL (12.0-16.0) Hematocrit 37.2 % (37.0-47.0) Mean Corpuscular Volume 87 FL (80-99) Mean Corpuscular Hemoglobin 29.6 PG (27.0-31.0) Mean Corpuscular Hemoglobin Concent 33.9 G/DL (32.0-36.0) Red Cell Distribution Width 13.7 % (11.6-14.8) Platelet Count 169 K/UL (150-450) Mean Platelet Volume 7.0 FL (6.5-10.1) Neutrophils (%) (Auto) 67.5 % (45.0-75.0) Lymphocytes (%) (Auto) 22.2 % (20.0-45.0) Monocytes (%) (Auto) 6.7 % (1.0-10.0) Eosinophils (%) (Auto) 2.3 % (0.0-3.0) Basophils (%) (Auto) 1.4 % (0.0-2.0) Sodium Level 139 MMOL/L (136-145) Potassium Level 4.1 MMOL/L (3.5-5.1) Chloride Level 102 MMOL/L (98-107) Carbon Dioxide Level 29 MMOL/L (21-32) Anion Gap 8 mmol/L (5-15) Blood Urea Nitrogen 20 mg/dL (7-18) H Creatinine 1.1 MG/DL (0.55-1.30) Estimat Glomerular Filtration Rate mL/min (>60) Glucose Level 124 MG/DL (74-106) H Calcium Level 9.1 MG/DL (8.5-10.1) Objective HEENT: Atraumatic and normocephalic, stitches over the nasal bridge, bruised aarti-orbital region. NECK: No JVD, no carotid bruit. CHEST: Clear to auscultation. HEART: S1, S2. Regular rate and rhythm, no murmurs, gallops or rubs. ABDOMEN: Soft. No organomegaly, non-tender, non-distended. MUSCULOSKELETAL: No edema, clubbing or cyanosis. NEUROLOGIC: Awake, alert, and oriented x3. Christiano Robles MD Sep 29, 2018 05:28
[2018-09-29] MEDS: Aspirin Baby 81mg ORAL SCH (09:00)
[2018-09-29] MEDS: Oxybutynin 5mg tab ORAL SCH (09:00)
[2018-09-29] MEDS ORDERED: Lidocaine 1% 10mg/ml/Epi 0.005mg/ml 30ml vial INJ ONE (10:15)
[2018-09-29] MEDS ORDERED: Midazolam 2mg/2ml Inj ONE (10:16)
[2018-09-29] MEDS ORDERED: Alfentanil 2ml Inj ONE (10:16)
--- NOTE | 2018-09-29 10:40 | Pre-Procedure Note/Attestation ---
Pre-Procedure Note/Attestation Complete Prior to Procedure Planned Procedure: not applicable Procedure Narrative: Closed reduction of nasal fracture Indications for Procedure Pre-Operative Diagnosis: open nasal fracture Description/indication for surgery: comminuted fractures of nose with dispalced septum and compressed nasl dorsum Attestation I attest that I discussed the nature of the procedure; its benefits; risks and complications; and alternatives (and the risks and benefits of such alternatives ), prior to the procedure, with the patient (or the patient's legal registration representative). I attest that, if there was a reasonable possibility of needing a blood transfusion, the patient (or the patient's legal registration representative) was given the [place] [employer] standardized written summary, pursuant to the Garrett Kirby Blood Safety Act ([place] Health and Safety Code # 1645, as amended). I attest that I re-evaluated the patient just prior to the surgery and that there has been no change in the patient's H&P, except as documented below: Silvino Glynn MD Sep 29, 2018 10:40
[2018-09-29] MEDS ORDERED: Propofol 200mg/20ml IV ONE (10:54)
[2018-09-29] MEDS ORDERED: Lidocaine 1% MPF 10mg/ml 5ml ONE (10:54)
--- NOTE | 2018-09-29 11:12 | Brief Operative Note ---
Immediate Post Operative Note Operative Note Pre-op Diagnosis: open nasal fracture Description/indication for surgery: comminuted fractures of nose with dispalced septum and compressed nasl dorsum Procedure: 1. Closed reduction of nasal septal fracture 2. Repair of doral nasal laceration Post-op Diagnosis: Open nasal septal fracture with dorsal nasal laceration Findings: consistent w/pre-op dx studies Surgeon: Silvino Glynn MD Wheel Cutter: None Additional Surgeons: None Anesthesia: general Specimen: none Complications: none Condition: stable Fluids: see or record Drains: other Packing: merocele nasal packing Implant(s) used?: No Silvino Glynn MD Sep 29, 2018 11:12
[2018-09-29] MEDS ORDERED: fentaNYL 100 mcg/2 mL IV ONE (11:15)
[2018-09-29] MEDS: fentaNYL 100 mcg/2 mL IV PRN ×3 (11:22→14:31)
--- NOTE | 2018-09-29 11:28 | Immediate Post-Op Evaluation ---
Immediate Post-Op Evalulation Immediate Post-Op Evalulation Procedure: closed reduction of nasal fx Date of Evaluation: Sep 29, 2018 Time of Evaluation: 11:28 IV Fluids: 600 Blood Pressure Systolic: 159 Blood Pressure Diastolic: 100 Pulse Rate: 77 Respiratory Rate: 14 O2 Sat by Pulse Oximetry: 100 Temperature (Fahrenheit): 97.0 Nausea: No Vomiting: No Patient Status: awake, reacts, patent Hydration Status: adequate Drug: ancef Given Within 1 Hr of Incision: Yes - 1130 Time Given: 10:30 Valorie Melgar CRNA Sep 29, 2018 11:28
--- NOTE | 2018-09-29 11:31 | Anethesia Preoperative Eval ---
Anesthesia Pre-op PMH/ROS General Date of Evaluation: Sep 29, 2018 Time of Evaluation: 10:15 Anesthesiologist: dax ASA Score: ASA 2 Mallampati Score Class I : Soft palate, uvula, fauces, pillars visible Class II: Soft palate, uvula, fauces visible Class III: Soft palate, base of uvula visible Class IV: Only hard plate visible Mallampati Classification: Class III Surgeon: sanchez Diagnosis: nasal fx Surgical Procedure: closed reduction Anesthesia History: none Family History: no anesthesia problems Allergies: Coded Allergies: No Known Allergies (Unverified , 09/26/18) Medications: see eMAR Patient NPO?: Yes NPO Date: Sep 29, 2018 NPO Time: 0000 Past Medical History Cardiovascular: Reports: HTN; Denies: CAD, NH, valve dz, arrhythmia, other Pulmonary: Denies: asthma, COPD, HARDY, other Gastrointestinal/Genitourinary: Reports: GERD; Denies: CRI, ESRD, other Neurologic/Psychiatric: Denies: dementia, CVA, depression/anxiety, TIA, other Endocrine: Denies: DM, hypothyroidism, steroids, other HEENT: Denies: cataract (L), cataract (R), glaucoma, TORRES MARTINEZ (L), TORRES MARTINEZ (R), other Hematology/Immune: Denies: anemia, DVT, bleeding disorder, other Musculoskeletal/Integumentary: Reports: OA Other: obesity PSxH Narrative: knee surgeries Anesthesia Pre-op Phys. Exam Physician Exam Last Vital Signs Date Time Temp Pulse Resp B/P (MAP) Pulse Ox O2 Delivery O2 Flow Rate FiO2 09/29/18 09:00 Room Air 09/29/18 08:00 99.4 73 18 126/60 (82) 95 09/26/18 09:48 98 Constitutional: NAD Neurologic: CN 2-12 intact Cardiovascular: RRR Respiratory: CTA Gastrointestinal: S/NT/ND Airway Exam Mallampati Classification 3 Mallampati Score: Class II MO: full Dentures: upper, lower Anesthesia Pre-op A/P Studies Pre-op Studies: EKG - sr Risk Assessment & Plan Assessment: denies changes Plan: general Status Change Before Surgery: No Pre-Antibiotics Drug: ancef Given Within 1 Hr of Incision: Yes Time Given: 10:30 Valorie Melgar CRNA Sep 29, 2018 11:30
--- NOTE | 2018-09-29 12:26 | General Surgery Progress Note ---
General Surgery-Progress Note Subjective Additional Comments no acute events. In OR today for repair of nasal fx. Objective Last 24 Hour Vital Signs Date Time Temp Pulse Resp B/P (MAP) Pulse Ox O2 Delivery O2 Flow Rate FiO2 09/29/18 11:55 68 16 159/88 95 Room Air 09/29/18 11:40 65 22 154/68 95 Room Air 09/29/18 11:30 67 18 151/67 97 Room Air 09/29/18 11:28 77 14 100 09/29/18 11:22 74 18 151/89 97 Room Air 09/29/18 11:17 75 24 156/88 97 Simple Mask 6 09/29/18 11:12 97.0 77 14 159/100 97 Simple Mask 6 09/29/18 09:00 Room Air 09/29/18 08:00 99.4 73 18 126/60 (82) 95 09/29/18 00:00 97.6 75 18 111/80 (90) 96 09/28/18 21:00 Room Air 09/28/18 20:00 97.2 80 18 119/76 (90) 95 09/28/18 16:00 86 09/28/18 16:00 97.1 84 18 118/68 (85) 95 I&O Intake and Output 09/28/18 09/29/18 19:00 07:00 Intake Total 730 ml 200 ml Balance 730 ml 200 ml Intake Oral 730 ml 200 ml # Voids 4 1 Plan Problems: (1) Fall (2) Facial trauma Assessment & Plan: nasal fracture with 3cm laceration to nasal bridge s/p lac repair in ED wound looks clean and healing well there is expected edema and bruising which will heal no signs of infection -cont current care -was wound daily and prn with shower or soap and water -instructed not to pick at sutures -sutures will be ready for removal in a few day -OR today for repair of nasal fx with plastics thank you for this consultation. will follow with you Mikhail Prabhakar Sep 29, 2018 12:26
--- NOTE | 2018-09-29 13:05 | 48 Hour Post Anesthesia Eval ---
Post Anesthesia Evaluation Procedure: closed reduction of nasal fx Date of Evaluation: Sep 29, 2018 Time of Evaluation: 13:05 Blood Pressure Systolic: 150 0: 70 Pulse Rate: 74 Respiratory Rate: 14 O2 Sat by Pulse Oximetry: 99 Airway: patent Nausea: No Vomiting: No Hydration Status: adequate Cardiopulmonary Status: stable Mental Status/LOC: patient returned to baseline Post-Anesthesia Complications: none Follow-up care needed: N/A Valorie Melgar CRNA Sep 29, 2018 13:05
--- NOTE | 2018-09-29 13:24 | General Progress Note ---
Assessment/Plan Assessment/Plan S: I need to hold my hand on the railing O: appears to have balance problem, Pain is well managed. high risk for fall PHYSICAL EXAMINATION:HEAD AND NECK: Laceration in the Nasal Septum. Positive for the posttraumatic fracture lines and changes in the nasal region.CHEST: Clear to auscultation. HEART: S1, S2. Regular rate and rhythm.ABDOMEN: Soft. No organomegaly. MUSCULOSKELETAL: Wide gate . lack of coordination NEUROLOGIC: Awake, alert, and oriented x3. Meds: reviewed and reconciled in the chart ASSESSMENT: 1. Acute encephalopathy, likely possibility of the cardiovascular insufficiency. 2. Renal failure, age indeterminate. 3. Hypertension. 4. Psychiatric disorder. 5. Abnormal blood sugar. 6. Thrombocytopenia. 7. Right-sided chronic knee pain. 8. GI and DVT prophylaxis. Plan: Post plastic surgery SNIF placement , once medically stable high risk for fall Subjective Allergies: Coded Allergies: No Known Allergies (Unverified , 09/26/18) Objective Last 24 Hour Vital Signs Date Time Temp Pulse Resp B/P (MAP) Pulse Ox O2 Delivery O2 Flow Rate FiO2 09/29/18 13:05 74 14 99 09/29/18 11:55 68 16 159/88 95 Room Air 09/29/18 11:40 65 22 154/68 95 Room Air 09/29/18 11:30 67 18 151/67 97 Room Air 09/29/18 11:28 77 14 100 09/29/18 11:22 74 18 151/89 97 Room Air 09/29/18 11:17 75 24 156/88 97 Simple Mask 6 09/29/18 11:12 97.0 77 14 159/100 97 Simple Mask 6 09/29/18 09:00 Room Air 09/29/18 08:00 99.4 73 18 126/60 (82) 95 09/29/18 00:00 97.6 75 18 111/80 (90) 96 09/28/18 21:00 Room Air 09/28/18 20:00 97.2 80 18 119/76 (90) 95 09/28/18 16:00 86 09/28/18 16:00 97.1 84 18 118/68 (85) 95 Intake and Output 09/28/18 09/29/18 19:00 07:00 Intake Total 730 ml 200 ml Balance 730 ml 200 ml Intake Oral 730 ml 200 ml # Voids 4 1 Height (Feet): 5 Height (Inches): 1.00 Weight (Pounds): 183 Kamini Garcia MD Sep 29, 2018 13:24
[2018-09-29] MEDS: oxyCODONE 5mg IR tab ORAL PRN ×2 (14:03→23:32)
--- NOTE | 2018-09-29 14:27 | Cardiology Report ---
APPROVED REPORT EXAM: Two-dimensional and M-mode echocardiogram with Doppler and color Doppler. INDICATION LV FUNCTION M-Mode DIMENSIONS IVSd1.5 (0.7-1.1cm) LVDd3.2 (3.5-5.6cm) PWd1.1 (0.7-1.1cm) IVSs1.7 cm LVDs2.3 (2.5-4.0cm) PWs1.0 cm Technically difficult study due to poor acoustical windows. Normal left ventricular chamber size, systolic function and wall motion to extent visualized. Left ventricular ejection fraction estimated to be 55 %. Study quality precludes accurate assessment of regional wall motion. No evidence of left ventricular hypertrophy. No evidence of pericardial effusion. All other cardiac chamber sizes are within normal limits. Focal aortic valve sclerosis with adequate cusp excursion. Mildly Thickened mitral valve leaflets with normal excursion. Mildly Mitral annulus and aortic root calcification. Pulmonic valve structure not well visualized . Normal tricuspid valve structure. IVC at normal size with physiologic collapse. A color flow and spectral Doppler study was performed and revealed: No aortic regurgitation. Mild mitral regurgitation. Mitral diastolic velocities suggest reduced left ventricular relaxation c/w mild LV diastolic dysfunction (Grade I ). Mild tricuspid regurgitation. Tricuspid systolic velocities suggests peak right ventricular systolic pressure of 19 mmHg.
--- NOTE | 2018-09-29 14:48 | Cardiology Report ---
APPROVED REPORT EKG Measurement Heart [id number] Normal sinus rhythm with sinus arrhythmia Normal ECG
[2018-09-29] MEDS: D5 1/2NS w/KCl 20mEq 1,000 ML IV SCH ×2 (15:48→22:30)
--- NOTE | 2018-09-29 17:00 | Operative Note - Dictated ---
DATE OF OPERATION: 09/26/2018 NOTE: "POOR AUDIO QUALITY" PREOPERATIVE DIAGNOSIS: Open fracture of the nose. POSTOPERATIVE DIAGNOSIS: Open fracture of the nose. PROCEDURE: Closed reduction of nasal fracture and septum with repair of dorsal nasal laceration. INDICATION FOR SURGERY: Comminuted open fracture of the nose with displacement of the dorsal nasal bones and septum with the laceration of the bridge of the nose was previously closed in the ER, but during prep, the sutures fell out and the wound was gaping wide, so it needed to be repaired as well. SURGEON: Silvino Glynn M.D. MACHINE TECH: None. ANESTHESIA: General anesthesia. COMPLICATIONS: None. ESTIMATED BLOOD LOSS: Minimum. IMPLANTS: Dorsal nasal splint with Merocel internal nasal splint. FINDINGS: During this procedure, 3.5 cm long L-shaped laceration across the dorsum of the nose, which opened up during prep and scrubbing. When the blood came off, the sutures are loose and the laceration was gaping wide, also depressed nasal dorsum, and deviated nasal septum. OPERATIVE PROCEDURE NOTE IN DETAIL: The patient was prepped and draped in the usual sterile fashion after general anesthesia was induced. The previous sutures that were dangling across the dorsal laceration were removed and the laceration was re-repaired in layers using 4-0 Monocryl interrupted deep dermal sutures and 5-0 fast-absorbing plain gut to close the skin in a running continuous fashion. After dorsal nasal laceration was closed in layers, the nasal fractures were popped up back into place using a butter knife. After reducing the nasal bones, an Asch forceps was then used to reduce the nasal septum to restore the nasal height. Once that was reduced, any bleeding was suctioned out and tamponaded using packing. Packing was then removed and Merocel nasal splints were placed into the intranasal cavity. At the end of the case, Steri-Strips were placed across the bridge of the nose and Aquaplast splint was placed over that. The patient tolerated the procedure well without any issues. The patient was extubated in the operating room and transferred to the postanesthesia care unit in good and stable condition. Silvino Glynn M.D. DR: Jenny JOB#: [id number] CC:
[2018-09-29] MEDS ORDERED: LORazepam Inj 2mg/ml 1ml IV PRN (23:30)
[2018-09-30] VITALS: BP 142/83
--- NOTE | 2018-09-30 00:30 | General Progress Note ---
Assessment/Plan Problem List: (1) Encephalopathy acute ICD Codes: G93.40 - Encephalopathy, unspecified SNOMED: 16450379, 139232870 (2) Head trauma ICD Codes: S09.90XA - Unspecified injury of head, initial encounter SNOMED: 31448341 Subjective Date patient seen: Sep 29, 2018 Neurologic/Psychiatric: Reports: anxiety, depressed, emotional problems Allergies: Coded Allergies: No Known Allergies (Unverified , 09/26/18) Objective Last 24 Hour Vital Signs Date Time Temp Pulse Resp B/P (MAP) Pulse Ox O2 Delivery O2 Flow Rate FiO2 09/29/18 21:00 Room Air 09/29/18 20:00 99.2 87 20 135/84 (101) 91 09/29/18 16:00 98.2 86 20 157/91 (113) 96 09/29/18 14:05 98.2 80 20 144/84 (104) 91 09/29/18 13:05 99.0 71 18 150/98 (115) 90 09/29/18 13:05 74 14 99 09/29/18 12:50 98.3 09/29/18 12:35 97.7 69 16 157/92 (113) 93 09/29/18 12:30 98.3 63 15 154/84 96 Room Air 09/29/18 12:20 62 15 156/96 96 Room Air 09/29/18 12:10 63 20 158/89 95 Room Air 09/29/18 11:55 68 16 159/88 95 Room Air 09/29/18 11:40 65 22 154/68 95 Room Air 09/29/18 11:30 67 18 151/67 97 Room Air 09/29/18 11:28 77 14 100 09/29/18 11:22 74 18 151/89 97 Room Air 09/29/18 11:17 75 24 156/88 97 Simple Mask 6 09/29/18 11:12 97.0 77 14 159/100 97 Simple Mask 6 09/29/18 09:00 Room Air 09/29/18 09:00 71 150/98 09/29/18 09:00 74 150/70 09/29/18 08:00 99.4 73 18 126/60 (82) 95 Intake and Output 09/29/18 09/30/18 18:59 06:59 Intake Total 1500 ml 100 ml Output Total 25 ml Balance 1475 ml 100 ml Intake Oral 300 ml IV Total 1200 ml 100 ml Output Estimated Blood Loss 25 ml # Voids 1 Height (Feet): 5 Height (Inches): 1.00 Weight (Pounds): 183 General Appearance: alert, confused, agitated Sirena Santa MD Sep 30, 2018 00:30
[2018-09-30] MEDS: D5 1/2NS w/KCl 20mEq 1,000 ML IV SCH ×3 (01:00→12:43)
[2018-09-30 04:00] VITALS: BP 132/77
[2018-09-30] MEDS ORDERED: Sterile Water Irrig 1000ml IRRIG ONE (07:00)
[2018-09-30] MEDS ORDERED: NS Irrig 1000ml ONE (07:00)
[2018-09-30 08:00] VITALS: BP 153/83
[2018-09-30] MEDS: Aspirin Baby 81mg ORAL SCH (08:32)
[2018-09-30] MEDS: Oxybutynin 5mg tab ORAL SCH (08:33)
[2018-09-30] MEDS ORDERED: LORazepam Inj 2mg/ml 1ml IM PRN (11:45)
[2018-09-30 12:00] VITALS: BP 139/73
--- NOTE | 2018-09-30 14:57 | General Progress Note ---
Assessment/Plan Assessment/Plan S: I need to hold my hand on the railing O: appears to have balance problem, Pain is well managed. high risk for fall PHYSICAL EXAMINATION:HEAD AND NECK: Laceration in the Nasal Septum. post closed reduction, Positive for the posttraumatic fracture lines and changes in the nasal region.CHEST: Clear to auscultation. HEART: S1, S2. Regular rate and rhythm.ABDOMEN: Soft. No organomegaly. MUSCULOSKELETAL: Wide gate . lack of coordination NEUROLOGIC: Awake, alert, and oriented x3. Meds: reviewed and reconciled in the chart ASSESSMENT: 1. Acute encephalopathy, likely possibility of the cardiovascular insufficiency. 2. Nasal Septum fracture: post Closed reduction 3. Renal failure, age indeterminate. 3. Hypertension. 4. Psychiatric disorder. 5. Abnormal blood sugar. 6. Thrombocytopenia. 7. Right-sided chronic knee pain. 8. GI and DVT prophylaxis. Plan: Post plastic surgery SNIF placement , high risk for fall Subjective Allergies: Coded Allergies: No Known Allergies (Unverified , 09/26/18) Objective Last 24 Hour Vital Signs Date Time Temp Pulse Resp B/P (MAP) Pulse Ox O2 Delivery O2 Flow Rate FiO2 09/30/18 12:00 98.0 80 14 139/73 (95) 92 09/30/18 09:00 Room Air 09/30/18 08:32 82 160/94 09/30/18 08:00 98.6 82 16 153/83 (106) 93 09/30/18 04:00 99.3 77 20 132/77 (95) 94 09/30/18 00:00 99.6 85 20 142/83 (102) 92 09/29/18 21:00 Room Air 09/29/18 20:00 99.2 87 20 135/84 (101) 91 09/29/18 16:00 98.2 86 20 157/91 (113) 96 Intake and Output 09/29/18 09/30/18 19:00 07:00 Intake Total 1600 ml 1140 ml Output Total 25 ml Balance 1575 ml 1140 ml Intake Oral 300 ml 240 ml IV Total 1300 ml 900 ml Output Estimated Blood Loss 25 ml # Voids 1 2 Height (Feet): 5 Height (Inches): 1.00 Weight (Pounds): 183 Kamini Garcia MD Sep 30, 2018 14:57
--- NOTE | 2018-09-30 15:13 | General Progress Note ---
Assessment/Plan Assessment/Plan seroquel prn ativan Subjective Neurologic/Psychiatric: Reports: anxiety, depressed, emotional problems Allergies: Coded Allergies: No Known Allergies (Unverified , 09/26/18) Objective Last 24 Hour Vital Signs Date Time Temp Pulse Resp B/P (MAP) Pulse Ox O2 Delivery O2 Flow Rate FiO2 09/30/18 12:00 98.0 80 14 139/73 (95) 92 09/30/18 09:00 Room Air 09/30/18 08:32 82 160/94 09/30/18 08:00 98.6 82 16 153/83 (106) 93 09/30/18 04:00 99.3 77 20 132/77 (95) 94 09/30/18 00:00 99.6 85 20 142/83 (102) 92 09/29/18 21:00 Room Air 09/29/18 20:00 99.2 87 20 135/84 (101) 91 09/29/18 16:00 98.2 86 20 157/91 (113) 96 Intake and Output 09/29/18 09/30/18 19:00 07:00 Intake Total 1600 ml 1140 ml Output Total 25 ml Balance 1575 ml 1140 ml Intake Oral 300 ml 240 ml IV Total 1300 ml 900 ml Output Estimated Blood Loss 25 ml # Voids 1 2 Height (Feet): 5 Height (Inches): 1.00 Weight (Pounds): 183 General Appearance: alert, confused, agitated Sirena Santa MD Sep 30, 2018 15:12
[2018-09-30 16:00] VITALS: BP 106/63
--- NOTE | 2018-09-30 17:19 | Cardiology Progress Note ---
Assessment/Plan Assessment/Plan 1. Pre-syncopal event likely due to volume loss due to furosemide, the patient denies syncope, continue hydration as it has helped renal function. 2D echo reveals normal LV systolic function as well as pulmonary artery pressure. 2. THEODORE, resolved, continue hydration, off lasix. 3. Psych disorder. Subjective Subjective Sinus rhythm at rate of 81. Objective Last 24 Hour Vital Signs Date Time Temp Pulse Resp B/P (MAP) Pulse Ox O2 Delivery O2 Flow Rate FiO2 09/30/18 16:00 98.3 81 16 106/63 (77) 90 09/30/18 12:00 98.0 80 14 139/73 (95) 92 09/30/18 09:00 Room Air 09/30/18 08:32 82 160/94 09/30/18 08:00 98.6 82 16 153/83 (106) 93 09/30/18 04:00 99.3 77 20 132/77 (95) 94 09/30/18 00:00 99.6 85 20 142/83 (102) 92 09/29/18 21:00 Room Air 09/29/18 20:00 99.2 87 20 135/84 (101) 91 Intake and Output 09/29/18 09/30/18 19:00 07:00 Intake Total 1600 ml 1140 ml Output Total 25 ml Balance 1575 ml 1140 ml Intake Oral 300 ml 240 ml IV Total 1300 ml 900 ml Output Estimated Blood Loss 25 ml # Voids 1 2 2D Echo: LVEF 55%, Mild MR, RVSP 19 mmHg, Grade I LVDD Objective HEENT: Atraumatic and normocephalic, stitches over the nasal bridge, bruised aarti-orbital region. NECK: No JVD, no carotid bruit. CHEST: Clear to auscultation. HEART: S1, S2. Regular rate and rhythm, no murmurs, gallops or rubs. ABDOMEN: Soft. No organomegaly, non-tender, non-distended. MUSCULOSKELETAL: No edema, clubbing or cyanosis. NEUROLOGIC: Awake, alert, and oriented x3. Christiano Robles MD Sep 30, 2018 17:19
--- NOTE | 2018-10-01 08:48 | Discharge Summary ---
Discharge Summary Discharge Summary _ DATE OF ADMISSION: 09/26/2018 DATE OF DISCHARGE: 09/30/2018 DISCHARGED BY: Dr. Kamini Garcia CONSULTANTS: Dr. Christiano Glynn BRIEF HOSPITAL COURSE: Patient is a 78-year-old female, who presented with lightheadedness following hitting her head against an object. She denied any loss of consciousness. Denied nausea, vomiting, diarrhea, constipation prior to this incident. She was complaining of pain at the right knee. She has medical history significant for hypertension, chronic pain, urinary incontinence, psychiatric disorder and right knee surgery. Evaluation at the ED, she was noted to have laceration near the nasal bridge. Wound was sutured. There was obvious comminuted fracture involving the facial area. Facial CT showed fracture of bilateral nasal bone and nasal process of the maxilla with extension into the nasal septum. There was blood and edema seen along the nasal septum. Head CT did not show any acute intracranial process. X-ray of the right knee showed prior arthroplasty. Hardware intact. No acute fracture or subluxation. Right leg x-ray for fracture. Chest x-ray was normal. Blood work elevated creatinine to 2.1, BUN 34. No leukocytosis, no anemia. Urinalysis was unremarkable. She was admitted for evaluation of encephalopathy, likely from cardiovascular insufficiency; sepsis cannot be excluded. She was resumed on home medications. Lasix, lisinopril were placed on hold. Cardiac evaluation was done. Patient had presyncopal episode in view of lightheadedness, and also being on Lasix therapy, suspect hypovolemia as the cause. She was given IV hydration. Echocardiogram showed normal LV systolic function as well as pulmonary artery pressure. Psychiatric evaluation was done. She was diagnosed with encephalopathy. She was given Seroquel and Ativan prn. Surgical consultation was obtained. Laceration repair done at the emergency room, wound looked clean and was healing well. There was no signs of infection. She was recommended with wound care. Plastic surgery evaluation was done for the nasal fracture. On 09/29/2018, she underwent close reduction of nasal septal fracture and repair of dorsal nasal laceration. She tolerated procedure well. Following day, nasal packing was removed. She was given PT mobility. Troponin levels were negative. Kidney function improved. She was eventually discharged to rehab center on . FINAL DIAGNOSES: Acute encephalopathy, likely possibility of cardiovascular insufficiency Nasal septum fracture status post closed reduction Acute renal failure, present on admission Hypertension Psychiatric disorder Thrombocytopenia Right-sided chronic pain Presyncopal episode, likely due to volume loss due to furosemide DISPOSITION: Patient was discharged to a SNF. DISCHARGE MEDICATIONS: Refer to Discharge Medication List. I have been assigned to dictate discharge summary on this account, and I was not involved in the patient's management. Chari Hoffman NP Oct 01, 2018 08:48
== END 2018-09-30 17:50 | DRG 41 ==
LOC: EMR 09:55 → 2E 10:12 → EDBEDREQ 12:22 → 2E 12:53 → 3E 09-28 20:22
PROC: 0KQ00ZZ Repair Head Muscle, Open Approach (ICD-10-PCS; principal; 2018-09-26)
PROC: 0NSBXZZ Reposition Nasal Bone, External Approach (ICD-10-PCS; principal; 2018-09-26)
DX: G93.49 Other encephalopathy (principal); S02.2XXB Fracture of nasal bones, initial encounter for open fracture; N17.9 Acute kidney failure, unspecified; I10 Essential (primary) hypertension; W19.XXXA Unspecified fall, initial encounter; Y92.099 Unspecified place in other non-institutional residence as the place of occurrence of the external cause; D69.6 Thrombocytopenia, unspecified; F09 Unspecified mental disorder due to known physiological condition; R55 Syncope and collapse; M25.561 Pain in right knee; G89.4 Chronic pain syndrome
CPT/HCPCS: 36415; 70450; 70486; 71045; 80048; 80053; 81003; 82550; 82553; 83690; 84484; 85025; 93005; 93306; 94003; 94150; 96374; 99285; J2250; J2405; J3490

== ENCOUNTER 2018-12-29 11:47 | Inpatient (IN) | payer MEDICARE, MEDICAID ==
[~2018-12-29] VITALS: Ht 154.9 cm; Wt 61.2 kg
[~2018-12-29 11:47] MED LIST: FAMOTIDINE20 MG ORAL; FUROSEMIDE40 MG ORAL; GABAPENTIN400 MG ORAL; LISINOPRIL20 MG ORAL; MOBIC15 MG ORAL; OLANZAPINE7.5 MG ORAL; OXYBUTYNIN CHLOR5 M1 ORAL; OXYCODONE H5 MG/5 ML ORAL; PANTOPRAZOLE SO20 MG ORAL; POTASSIUM CHLO20 ME3 PO; SEROQUEL50 MG ORAL
[2018-12-29 12:15] VITALS: BP 130/64
--- NOTE | 2018-12-29 12:15 | NUR ---
ED Nurse Note: patient was brought by her friend, complaining of both knees pain 10/10. patient is here from assisting living facility. AAO x4, VSS at this time, skin is dry intact, warm to touch.
[2018-12-29] MEDS ORDERED: Mylanta II UD 30ml ORAL ONE (13:00)
[2018-12-29] MEDS ORDERED: Dicyclomine HCl 10mg/5ml oral soln ORAL ONE (13:00)
[2018-12-29] MEDS ORDERED: Lidocaine 2% Visc 15ml soln ORAL ONE (13:00)
[2018-12-29] MEDS ORDERED: Isovue-300 100ml vial INJ PRN (13:00)
[2018-12-29 13:22] LABS: BASOPHILS % (AUTO) 1.2 % (0.0-2.0); HEMOGLOBIN 12.3 G/DL (12.0-16.0); LYMPHOCYTES % (AUTO) 23.7 % (20.0-45.0); MEAN CORPUSCULAR VOLUME 90 FL (80-99); MONOCYTES % (AUTO) 6.4 % (1.0-10.0); NEUTROPHILS % (AUTO) 65.7 % (45.0-75.0); PLATELET COUNT 278 K/UL (150-450); RED BLOOD COUNT 4.09 M/UL (4.20-5.40); RED CELL DISTRIBUTION WIDTH 11.9 % (11.6-14.8); WHITE BLOOD COUNT 4.7 K/UL (4.8-10.8)
--- NOTE | 2018-12-29 13:25 | NUR ---
ED Nurse Note: patient is getting knees Xray
[2018-12-29 13:39] LABS: ALANINE AMINOTRANSFERASE 26 U/L (12-78); ALBUMIN 3.2 G/DL (3.4-5.0); ALBUMIN/GLOBULIN RATIO 0.9 (1.0-2.7); ALKALINE PHOSPHATASE 84 U/L (46-116); ASPARTATE AMINO TRANSFERASE 20 U/L (15-37); BILIRUBIN,TOTAL 0.3 MG/DL (0.2-1.0); BLOOD UREA NITROGEN 12 mg/dL (7-18); CALCIUM 8.5 MG/DL (8.5-10.1)
[2018-12-29 13:58] LABS: CARBON DIOXIDE 32 MMOL/L (21-32)
[2018-12-29 14:08] LABS: ANION GAP 7 mmol/L (5-15); CHLORIDE 103 MMOL/L (98-107); POTASSIUM 3.6 MMOL/L (3.5-5.1); SODIUM 142 MMOL/L (136-145)
[2018-12-29 14:56] LABS: APPEARANCE,URINE CLEAR; BILIRUBIN, URINE NEGATIVE (NEGATIVE); COLOR,URINE PALE YELLOW; GLUCOSE, URINE (UA) NEGATIVE (NEGATIVE); KETONES,URINE NEGATIVE (NEGATIVE); LEUKOCYTE ESTERASE ,URINE NEGATIVE (NEGATIVE); NITRITE,URINE NEGATIVE (NEGATIVE); PH,URINE 8 (4.5-8.0); PROTEIN,URINE NEGATIVE (NEGATIVE); UROBILINOGEN,URINE NORMAL MG/DL (0.0-1.0)
[2018-12-29 15:05] VITALS: BP 135/70
--- NOTE | 2018-12-29 15:07 | Emergency Room Report ---
History of Present Illness General Chief Complaint: Multiple Trauma/Fall Source: Patient Present Illness HPI 78-year-old female presents ED for evaluation. Patient is here for abdominal pain. Epigastric. Was told that she has constipation and was given stool softeners but states her pain persists. 8 out of 10, sharp, nonradiating. Denies nausea or vomiting. Denies fevers or chills. Denies chest pain or shortness of breath. Also complaining of bilateral knee pain. States that because of the pain she's been falling and been unsteady gait. Has had 20+ surgeries on the right knee. No other aggravating relieving factors. Denies any other associated symptoms Allergies: Coded Allergies: No Known Allergies (Unverified , 09/26/18) Patient History Past Medical History: HTN Past Surgical History: other - knee surgery Pertinent Family History: none Social History: Denies: smoking, alcohol use, drug use Now: No Immunizations: UTD Reviewed Nursing Documentation: PMH: Agreed; PSxH: Agreed Nursing Documentation-PMH Past Medical History: No History, Except For Hx Hypertension: Yes Review of Systems All Other Systems: negative except mentioned in HPI Physical Exam Vital Signs Date Time Temp Pulse Resp B/P (MAP) Pulse Ox O2 Delivery O2 Flow Rate FiO2 12/29/18 11:58 98.1 82 18 130/64 98 Room Air Sp02 EP Interpretation: reviewed, normal General Appearance: no apparent distress, alert, GCS 15, non-toxic Head: normocephalic, atraumatic Eyes: bilateral eye normal inspection, bilateral eye PERRL ENT: hearing grossly normal, normal pharynx, no angioedema, normal voice Neck: full range of motion, supple/symm/no masses Respiratory: chest non-tender, lungs clear, normal breath sounds, speaking full sentences Cardiovascular #1: regular rate, rhythm, no edema Cardiovascular #2: 2+ carotid (R), 2+ carotid (L), 2+ radial (R), 2+ radial (L) , 2+ dorsalis pedis (R), 2+ dorsalis pedis (L) Gastrointestinal: normal bowel sounds, soft, non-distended, no guarding, no rebound, tenderness - epigastric Rectal: deferred Genitourinary: normal inspection, no CVA tenderness Musculoskeletal: back normal, gait/station normal, normal range of motion, tender - bilateral knee Neurologic: alert, oriented x3, responsive, motor strength/tone normal, sensory intact, speech normal Psychiatric: judgement/insight normal, memory normal, mood/affect normal, no suicidal/homicidal ideation Reflexes: 3+ bicep (R), 3+ bicep (L), 3+ tricep (R), 3+ tricep (L), 3+ knee (R) , 3+ knee (L) Skin: normal color, no rash, warm/dry, well hydrated Lymphatic: no adenopathy Medical Decision Making Diagnostic Impression: Primary Impression: Unsteady gait Additional Impressions: Intractable abdominal pain Knee pain, bilateral Qualified Codes: M25.561 - Pain in right knee; M25.562 - Pain in left knee; G89.29 - Other chronic pain ER Course Hospital Course 78-year-old female presents for evaluation of abdominal pain, bilateral knee pain Differential diagnoses include: BPH, cystitis, pyelonephritis, kidney stone Clinical course Patient placed on stretcher. telemetry monitor. After initial history and physical I ordered labs, IV fluids, CT A/P, Xrays bilateral knees Labs - no leukocytosis, Hb/Hct stable, electrolytes ok CT abdomen and pelvis - no acute process X-rays of bilateral knees show left knee severe DJD, right knee hardware in place. No acute process Patient has unsteady gait, continued pain. Frequent falls. Not safe for discharge at this time. Will be admitted for pain control patient will be admitted to Dr Garcia I feel this is a highly complex case requiring extensive working including EKG/ Rhythm strip, Xray/CT/US, Blood/urine lab work, repeat exams while in ED, and administration of strong opiates/narcotics for pain control, admission to hospital or close patient follow up. Diagnosis - unsteady gait, intractable abd pain, bilateral knee pain Patient admitted to floor in serious condition Labs Test 12/29/18 13:00 12/29/18 13:55 White Blood Count 4.7 K/UL (4.8-10.8) Red Blood Count 4.09 M/UL (4.20-5.40) Hemoglobin 12.3 G/DL (12.0-16.0) Hematocrit 37.0 % (37.0-47.0) Mean Corpuscular Volume 90 FL (80-99) Mean Corpuscular Hemoglobin 30.1 PG (27.0-31.0) Mean Corpuscular Hemoglobin Concent 33.4 G/DL (32.0-36.0) Red Cell Distribution Width 11.9 % (11.6-14.8) Platelet Count 278 K/UL (150-450) Mean Platelet Volume 6.0 FL (6.5-10.1) Neutrophils (%) (Auto) 65.7 % (45.0-75.0) Lymphocytes (%) (Auto) 23.7 % (20.0-45.0) Monocytes (%) (Auto) 6.4 % (1.0-10.0) Eosinophils (%) (Auto) 3.0 % (0.0-3.0) Basophils (%) (Auto) 1.2 % (0.0-2.0) Sodium Level 142 MMOL/L (136-145) Potassium Level 3.6 MMOL/L (3.5-5.1) Chloride Level 103 MMOL/L (98-107) Carbon Dioxide Level 32 MMOL/L (21-32) Anion Gap 7 mmol/L (5-15) Blood Urea Nitrogen 12 mg/dL (7-18) Creatinine 1.0 MG/DL (0.55-1.30) Estimat Glomerular Filtration Rate mL/min (>60) Glucose Level 96 MG/DL (74-106) Calcium Level 8.5 MG/DL (8.5-10.1) Total Bilirubin 0.3 MG/DL (0.2-1.0) Aspartate Amino Transf (AST/SGOT) 20 U/L (15-37) Alanine Aminotransferase (ALT/SGPT) 26 U/L (12-78) Alkaline Phosphatase 84 U/L (46-116) Total Protein 6.8 G/DL (6.4-8.2) Albumin 3.2 G/DL (3.4-5.0) Globulin 3.6 g/dL Albumin/Globulin Ratio 0.9 (1.0-2.7) Lipase 319 U/L (73-393) Urine Color Pale yellow Urine Appearance Clear Urine pH 8 (4.5-8.0) Urine Specific [place] 1.010 (1.005-1.035) Urine Protein Negative (NEGATIVE) Urine Glucose (UA) Negative (NEGATIVE) Urine Ketones Negative (NEGATIVE) Urine Blood Negative (NEGATIVE) Urine Nitrite Negative (NEGATIVE) Urine Bilirubin Negative (NEGATIVE) Urine Urobilinogen Normal MG/DL (0.0-1.0) Urine Leukocyte Esterase Negative (NEGATIVE) Other X-Ray Diagnostic Results Other X-Ray Diagnostic Results #1: X-Ray ordered: R knee # of Views/Limited Vs Complete: 3 View Indication: Pain EP Interpretation: Yes Interpretation: no dislocation, no soft tissue swelling, no fractures, other - R knee hardware in place Impression: No acute disease Electronically Signed by: Electronically signed by Ritesh De Leon MD Other X-Ray Diagnostic Results #2: X-Ray ordered: L knee # of Views/Limited Vs Complete: 3 View Indication: Pain EP Interpretation: Yes Interpretation: no dislocation, no soft tissue swelling, no fractures Impression: Other - severe DJD Electronically Signed by: Electronically signed by Ritesh De Leon MD CT/MRI/US Diagnostic Results CT/MRI/US Diagnostic Results : Imaging Test Ordered: CT A/P Impression Possible mild enteritis involving lower abdominal small bowel Last Vital Signs Date Time Temp Pulse Resp B/P (MAP) Pulse Ox O2 Delivery O2 Flow Rate FiO2 12/29/18 12:15 98.1 18 130/64 98 Room Air 12/29/18 12:15 82 Status: improved Disposition: ADMITTED INPATIENT Condition: Serious Referrals: Kamini Garcia MD (PCP) Ritesh De Leon MD Dec 29, 2018 15:07
--- NOTE | 2018-12-29 15:10 | Diagnostic Imaging Report ---
Indication: Abdominal pain Technique: Continuous helical transaxial imaging of the abdomen and pelvis was obtained from the lung bases to the pubic symphysis during intravenous contrast administration. Coronal 2-D reformats were also obtained. Study obtained in a Siemens sensation [address] Automatic Exposure Control was utilized. Total Dose length Product (DLP): 833.[address] Dose Index Volume (CTDIvol): 17.49 mGy Comparison: None Findings: The lung bases are clear. There is a hiatal hernia. The liver and gallbladder, spleen, adrenal glands appear unremarkable. In the uncinate process of the pancreas there is a 2.5 x 2.0 cm cystic focus will well-circumscribed borders. The CBD does not appear dilated. There is a ring 3.3 cm cyst in the left kidney. Other small hypodensities too small to characterize the lesion within both kidneys. There is no free fluid. The appendix is not seen. There are no secondary signs of acute appendicitis identified. Uterus is unremarkable. Mild, distended fluid-filled loops of small bowel noted in the lower abdomen and pelvis, nonspecific. There is narrowing of intervertebral discs and accompanying endplate osteophyte formation. Hypertrophied facet joints also demonstrated.. IMPRESSION: Possible mild enteritis involving lower abdominal small bowel. Correlate clinically. Incidental 2.5 x 2 cm hypodensity, probably cystic within the uncinate process of the pancreas. Findings could be inflammatory or neoplastic. Further characterization and evaluation with MRI may be indicated as part of the clinical workup. Left renal cyst Hiatal hernia Multiple renal hypodensities too small to characterize on this examination. Degenerative changes of the spine The CT scanner at [facility] is accredited by the [employer] and the scans are performed using dose optimization techniques as appropriate to a performed exam including Automatic Exposure control.
--- NOTE | 2018-12-29 15:10 | NUR ---
ED Nurse Note: patient got chest Xray
[2018-12-29] MEDS ORDERED: OXYCODONE HCL10 MG ORAL (15:46)
[2018-12-29] MEDS ORDERED: SEROQUEL100 MG ORAL (15:46)
[2018-12-29] MEDS ORDERED: ZANTAC150 MG ORAL (15:46)
[2018-12-29] MEDS ORDERED: CALCIUM500 M3 PO (15:46)
[2018-12-29] MEDS ORDERED: CYMBALTA30 MG ORAL (15:46)
[2018-12-29] MEDS ORDERED: DOCUSATE CALCI240 MG PO (15:46)
[2018-12-29] MEDS ORDERED: PANTOPRAZOLE SO40 MG ORAL (15:46)
[2018-12-29] MEDS ORDERED: LINZESS145 MCG PO (15:46)
[2018-12-29] MEDS ORDERED: GABAPENTIN400 MG ORAL (15:46)
[2018-12-29] MEDS ORDERED: LORAZEPAM1 MG ORAL (15:46)
[2018-12-29] MEDS ORDERED: TEMAZEPAM15 MG ORAL (15:46)
[2018-12-29] MEDS ORDERED: DIPHENHYDRAMINE25 M1 ORAL (15:46)
--- NOTE | 2018-12-29 15:56 | Diagnostic Imaging Report ---
Indication: Pain Knee pain/trauma 3 views of the right knee were obtained. Findings: Cemented total knee arthroplasty demonstrated. The no acute fracture, malalignment or abnormal interface lucencies are identified on this examination. The bones are osteopenic. There are electrodes projected over the lower femur. IMPRESSION: No acute injury appreciated
--- NOTE | 2018-12-29 15:56 | Diagnostic Imaging Report ---
Indication: Knee Pain 3 views of the left knee were obtained. Findings: No acute fracture, malalignment, or joint effusion are identified. Joint space is moderately narrowed and there are endplate spurs in all 3 compartments. Bones are osteopenic. Impression: Negative for acute injury. Moderate to severe osteoarthrosis.
[2018-12-29 16:20] VITALS: BP 146/92
--- NOTE | 2018-12-29 16:29 | NUR ---
NURSE NOTES: PATIENT ARRIVED FROM ER DEPT. ON GURNEY. AOX4.ALL BELONGINGS CHECKED AT BEDSIDE WITH TRANSPORTER. ASSISTED PATIENT INTO BED USING WALKER. GAIT STEADY. DENIES WEAKNESS OR DIZZINESS. PATIENT ORIENTED TO ROOM. CALL LIGHT WITHIN REACH. BED IN LOW AND LOCKED POSITION. WILL NOTIFY ADMITTING MD DR. WRIGHT.
[2018-12-29] MEDS ORDERED: HYDROcodone/Acetamin 5/325 tab ORAL PRN (17:15)
--- NOTE | 2018-12-29 17:15 | NUR ---
NURSE NOTES: PLACED CALL TO DR WRIGHT; ORDERS RECEIVED. DR. YOST TO SEE PATIENT CONSULT. PATIENT KEPT INFORMED.
--- NOTE | 2018-12-29 17:40 | NUR ---
CASE MANAGEMENT: INITIAL REVIEW 78 YO F PRESENTED TO OUR ED FROM ASST LIVING CC: FALL LAST WEEK PMHx: HTN. SI:INTRACTABLE ABD PAIN. UNSTEADY GAIT. KNEE PAIN. T 98.1 HR 82 RR 18 B/P 130/64 SATS 98% ON RA WBC 4.7 IS: PEPCID IV X1 LIDOCAINE PO X1 BENTYL PO X1 MYLANTA PO X1 PATIENT ADMITTED TO MED/SURG 12/29/2018 @ 1700 DCP: PATIENT TO BE DISCHARGED TO HOME ONCE MEDICALLY CLEARED. PLAN OF CARE: PT EVAL PAIN MANAGEMENT Addendum: 12/29/18 at 1936 by Candy Davis CM INTERQUAL MET
[2018-12-29] MEDS: Docusate 250mg cap ORAL SCH (18:12)
[2018-12-29] MEDS: LORazepam 1mg tab ORAL SCH (18:12)
[2018-12-29] MEDS: Tums 500mg ORAL SCH (18:12)
[2018-12-29] MEDS ORDERED: oxyCODONE 5mg IR tab ORAL PRN (18:30)
[2018-12-29] MEDS: oxyCODONE 5mg IR tab ORAL PRN ×2 (18:40→23:18)
--- NOTE | 2018-12-29 19:06 | NUR ---
HAND-OFF: Report given to DEJUAN ARGUETA RN.
--- NOTE | 2018-12-29 19:30 | NUR ---
NURSE NOTES: report received from DINESH Hinojosa. Patient in bed, alert, oriented. Bed in lowest position, side rails up x2, call light within reach. Walker at bedside. Instructed to call nurse to get oob as needed. Saline lock on LAC, intact, patent. Will continue to monitor.
[2018-12-29 20:00] VITALS: BP 127/80
--- NOTE | 2018-12-29 23:01 | Consultation ---
History of Present Illness General Chief Complaint: Multiple Trauma/Fall Present Illness Allergies: Coded Allergies: No Known Allergies (Unverified , 09/26/18) Medication History Scheduled Docusate Calcium (Docusate Calcium), 240 MG PO BID, (Reported) Duloxetine Hcl* (Cymbalta*), 30 MG ORAL DAILY, (Reported) Famotidine (Famotidine), 20 MG ORAL TWICE A DAY, (Reported) Furosemide* (Lasix*), 40 MG ORAL DAILY, (Reported) Gabapentin* (Gabapentin*), 400 MG ORAL THREE TIMES A DAY, (Reported) Gabapentin* (Gabapentin*), 400 MG ORAL THREE TIMES A DAY, (Reported) Lisinopril (Lisinopril*), 20 MG ORAL DAILY, (Reported) Lorazepam* (Lorazepam*), 1 MG ORAL THREE TIMES A DAY, (Reported) Meloxicam* (Mobic*), 15 MG ORAL DAILY, (Reported) Olanzapine (Olanzapine), 7.5 MG ORAL DAILY, (Reported) Oxybutynin Chloride (Oxybutynin Chloride), 10 MG ORAL DAILY, (Reported) Oxycodone Hcl (Oxycodone Hcl), 10 ML ORAL Q6HR, (Reported) Pantoprazole (Pantoprazole), 40 MG ORAL DAILY, (Reported) Pantoprazole* (Pantoprazole*), 40 MG ORAL DAILY, (Reported) Potassium Chloride (Potassium Chloride), 20 MEQ PO DAILY, (Reported) Quetiapine Fumarate (Seroquel), 50 MG ORAL TWICE A DAY, (Reported) Quetiapine Fumarate* (Seroquel*), 100 MG ORAL DAILY, (Reported) Ranitidine Hcl* (Zantac*), 150 MG ORAL TWICE A DAY, (Reported) Temazepam (Temazepam*), 15 MG ORAL BEDTIME, (Reported) Scheduled PRN Diphenhydramine Hcl* (Diphenhydramine Hcl*), 25 MG ORAL Q6H PRN for Itching, ( Reported) Oxycodone Hcl* (Oxycodone Hcl*), 10 MG ORAL Q4H PRN for For Pain, (Reported) Miscellaneous Medications Calcium Carbonate (Calcium), 500 MG PO, (Reported) Linaclotide (Linzess), 145 MCG PO, (Reported) Patient History Healthcare decision maker Resuscitation status Full Code Advanced Directive on File No Physical Exam Last 24 Hour Vital Signs Date Time Temp Pulse Resp B/P (MAP) Pulse Ox O2 Delivery O2 Flow Rate FiO2 12/29/18 17:16 Room Air 12/29/18 16:20 98.0 78 20 146/92 (110) 96 12/29/18 15:05 98.0 78 20 135/70 99 Room Air 12/29/18 13:40 98.6 68 20 135/65 99 Room Air 12/29/18 12:15 98.1 18 130/64 98 Room Air 12/29/18 12:15 82 18 Room Air 12/29/18 11:58 98.1 82 18 130/64 98 Room Air Laboratory Tests Test 12/29/18 13:00 12/29/18 13:55 White Blood Count 4.7 K/UL (4.8-10.8) L Red Blood Count 4.09 M/UL (4.20-5.40) L Hemoglobin 12.3 G/DL (12.0-16.0) Hematocrit 37.0 % (37.0-47.0) Mean Corpuscular Volume 90 FL (80-99) Mean Corpuscular Hemoglobin 30.1 PG (27.0-31.0) Mean Corpuscular Hemoglobin Concent 33.4 G/DL (32.0-36.0) Red Cell Distribution Width 11.9 % (11.6-14.8) Platelet Count 278 K/UL (150-450) Mean Platelet Volume 6.0 FL (6.5-10.1) L Neutrophils (%) (Auto) 65.7 % (45.0-75.0) Lymphocytes (%) (Auto) 23.7 % (20.0-45.0) Monocytes (%) (Auto) 6.4 % (1.0-10.0) Eosinophils (%) (Auto) 3.0 % (0.0-3.0) Basophils (%) (Auto) 1.2 % (0.0-2.0) Sodium Level 142 MMOL/L (136-145) Potassium Level 3.6 MMOL/L (3.5-5.1) Chloride Level 103 MMOL/L (98-107) Carbon Dioxide Level 32 MMOL/L (21-32) Anion Gap 7 mmol/L (5-15) Blood Urea Nitrogen 12 mg/dL (7-18) Creatinine 1.0 MG/DL (0.55-1.30) Estimat Glomerular Filtration Rate mL/min (>60) Glucose Level 96 MG/DL (74-106) Calcium Level 8.5 MG/DL (8.5-10.1) Total Bilirubin 0.3 MG/DL (0.2-1.0) Aspartate Amino Transf (AST/SGOT) 20 U/L (15-37) Alanine Aminotransferase (ALT/SGPT) 26 U/L (12-78) Alkaline Phosphatase 84 U/L (46-116) Total Protein 6.8 G/DL (6.4-8.2) Albumin 3.2 G/DL (3.4-5.0) L Globulin 3.6 g/dL Albumin/Globulin Ratio 0.9 (1.0-2.7) L Lipase 319 U/L (73-393) Urine Color Pale yellow Urine Appearance Clear Urine pH 8 (4.5-8.0) Urine Specific [place] 1.010 (1.005-1.035) Urine Protein Negative (NEGATIVE) Urine Glucose (UA) Negative (NEGATIVE) Urine Ketones Negative (NEGATIVE) Urine Blood Negative (NEGATIVE) Urine Nitrite Negative (NEGATIVE) Urine Bilirubin Negative (NEGATIVE) Urine Urobilinogen Normal MG/DL (0.0-1.0) Urine Leukocyte Esterase Negative (NEGATIVE) Height (Feet): 5 Height (Inches): 1.00 Weight (Pounds): 135 Medications Current Medications Medications (Trade) Dose Ordered Sig/Ainsley Route PRN Reason Start Time Stop Time Status Last Admin Dose Admin Calcium Carbonate (Tums) 500 mg THREE TIMES A DAY ORAL 12/29/18 18:00 01/28/19 17:59 12/29/18 18:12 Diphenhydramine HCl (Benadryl) 25 mg Q6H PRN ORAL Itching 12/29/18 17:00 01/28/19 16:59 Docusate Sodium (Colace) 250 mg BID ORAL 12/29/18 18:00 01/28/19 17:59 12/29/18 18:12 Duloxetine HCl (Cymbalta) 30 mg DAILY ORAL 12/30/18 09:00 01/29/19 08:59 Enoxaparin Sodium (Lovenox) 40 mg DAILY SUBQ 12/30/18 09:00 01/29/19 08:59 Gabapentin (Neurontin) 400 mg THREE TIMES A DAY ORAL 12/29/18 18:00 01/28/19 17:59 12/29/18 18:12 Lorazepam (Ativan) 1 mg THREE TIMES A DAY ORAL 12/29/18 18:00 01/05/19 17:59 12/29/18 18:12 Oxycodone HCl (Roxicodone) 10 mg Q4H PRN ORAL pain 4-10 12/29/18 18:45 01/05/19 18:29 12/29/18 18:40 Pantoprazole (Protonix) 40 mg DAILY ORAL 12/30/18 09:00 01/29/19 08:59 Temazepam (Restoril) 15 mg BEDTIME ORAL 12/29/18 21:00 01/05/19 20:59 12/29/18 20:13 Sirena Santa MD Dec 29, 2018 23:01
[2018-12-30 04:00] VITALS: BP 132/85
[2018-12-30] MEDS: oxyCODONE 5mg IR tab ORAL PRN ×2 (04:57→17:11)
--- NOTE | 2018-12-30 07:30 | NUR ---
HAND-OFF: Report given to DINESH Koenig.
[2018-12-30 07:54] LABS: ALANINE AMINOTRANSFERASE 20 U/L (12-78); ALBUMIN 3.2 G/DL (3.4-5.0); ALBUMIN/GLOBULIN RATIO 0.9 (1.0-2.7); ALKALINE PHOSPHATASE 82 U/L (46-116); ANION GAP 8 mmol/L (5-15); ASPARTATE AMINO TRANSFERASE 20 U/L (15-37); BILIRUBIN,TOTAL 0.3 MG/DL (0.2-1.0); BLOOD UREA NITROGEN 10 mg/dL (7-18); CALCIUM 8.9 MG/DL (8.5-10.1); CARBON DIOXIDE 30 MMOL/L (21-32); CHLORIDE 104 MMOL/L (98-107); CREATININE 0.9 MG/DL (0.55-1.30); POTASSIUM 3.5 MMOL/L (3.5-5.1); SODIUM 142 MMOL/L (136-145)
[2018-12-30 07:56] LABS: BASOPHILS % (AUTO) 1.1 % (0.0-2.0); EOSINOPHILS % (AUTO) 3.3 % (0.0-3.0); HEMATOCRIT 39.8 % (37.0-47.0); HEMOGLOBIN 12.9 G/DL (12.0-16.0); LYMPHOCYTES % (AUTO) 34.1 % (20.0-45.0); MEAN CORPUSCULAR VOLUME 91 FL (80-99); MONOCYTES % (AUTO) 7.3 % (1.0-10.0); NEUTROPHILS % (AUTO) 54.2 % (45.0-75.0); PLATELET COUNT 306 K/UL (150-450); RED BLOOD COUNT 4.38 M/UL (4.20-5.40); RED CELL DISTRIBUTION WIDTH 11.6 % (11.6-14.8); WHITE BLOOD COUNT 5.5 K/UL (4.8-10.8)
--- NOTE | 2018-12-30 07:59 | NUR ---
NURSE NOTES: Report received from DINESH Ortega. Pt in bed, awake, talkative, A/O x4, no complaints of pain, eating breakfast, bed in lowest position, call light within reach.
[2018-12-30 08:00] VITALS: BP 102/65
[2018-12-30] MEDS: DULoxetine 30mg cap ORAL SCH (08:52)
[2018-12-30] MEDS: Docusate 250mg cap ORAL SCH ×2 (08:52→17:06)
[2018-12-30] MEDS: Tums 500mg ORAL SCH ×3 (08:53→17:06)
[2018-12-30] MEDS: LORazepam 1mg tab ORAL SCH ×3 (08:53→17:06)
[2018-12-30] MEDS: Enoxaparin 40mg Inj SUBQ SCH (08:55)
[2018-12-30] MEDS ORDERED: Gadavist 7.5mMol/7.5ml vial IV PRN (09:45)
--- NOTE | 2018-12-30 09:50 | General Progress Note ---
Assessment/Plan Assessment/Plan S: I am feeling weak O: appears comfortable. Sitting on her bed side PHYSICAL EXAMINATION: HEAD AND NECK: Atraumatic and normocephalic. Positive for the posttraumatic fracture lines and changes in the nasal region. CHEST: Clear to auscultation. HEART: S1, S2. Regular rate and rhythm. ABDOMEN: Soft. No organomegaly. MUSCULOSKELETAL: No gross focal motor deficit. NEUROLOGIC: Awake, alert, and oriented x3. PHYSICAL EXAMINATION:HEAD AND NECK: . post closed reduction of the nasal bone , .CHEST: Clear to auscultation. HEART: S1, S2. Regular rate and rhythm.ABDOMEN: Soft. No organomegaly. MUSCULOSKELETAL: Decreased ROM in right knee, Wide gate . lack of coordination NEUROLOGIC: Awake, alert, and oriented x3. Meds: reviewed and reconciled in the chart ASSESSMENT: 1. Acute encephalopathy, likely possibility of the cardiovascular insufficiency. 2. Nasal Septum fracture: post Closed reduction 3. Renal failure, age indeterminate. 3. Hypertension. 4. Psychiatric disorder. 5. Abnormal blood sugar. 6. Thrombocytopenia. 7. Right-sided chronic knee pain. 8. GI and DVT prophylaxis. Plan: Post plastic surgery SNIF placement , high risk for fall Subjective Allergies: Coded Allergies: No Known Allergies (Unverified , 09/26/18) Objective Last 24 Hour Vital Signs Date Time Temp Pulse Resp B/P (MAP) Pulse Ox O2 Delivery O2 Flow Rate FiO2 12/30/18 08:00 98.0 74 16 102/65 (77) 96 12/30/18 04:00 97.7 64 16 132/85 (101) 99 12/30/18 00:00 17 12/29/18 21:00 Room Air 12/29/18 20:00 98.2 79 18 127/80 (96) 96 12/29/18 17:16 Room Air 12/29/18 16:20 98.0 78 20 146/92 (110) 96 12/29/18 15:05 98.0 78 20 135/70 99 Room Air 12/29/18 13:40 98.6 68 20 135/65 99 Room Air 12/29/18 12:15 98.1 18 130/64 98 Room Air 12/29/18 12:15 82 18 Room Air 12/29/18 11:58 98.1 82 18 130/64 98 Room Air Intake and Output 12/29/18 12/30/18 18:59 06:59 Intake Total 360 ml 450 ml Balance 360 ml 450 ml Intake Oral 360 ml 450 ml # Voids 3 Laboratory Tests 12/29/18 13:00: White Blood Count 4.7L, Red Blood Count 4.09L, Hemoglobin 12.3, Hematocrit 37.0 , Mean Corpuscular Volume 90, Mean Corpuscular Hemoglobin 30.1, Mean Corpuscular Hemoglobin Concent 33.4, Red Cell Distribution Width 11.9, Platelet Count 278, Mean Platelet Volume 6.0L, Neutrophils (%) (Auto) 65.7, Lymphocytes ( %) (Auto) 23.7, Monocytes (%) (Auto) 6.4, Eosinophils (%) (Auto) 3.0, Basophils (%) (Auto) 1.2, Sodium Level 142, Potassium Level 3.6, Chloride Level 103, Carbon Dioxide Level 32, Anion Gap 7, Blood Urea Nitrogen 12, Creatinine 1.0, Estimat Glomerular Filtration Rate , Glucose Level 96, Calcium Level 8.5, Total Bilirubin 0.3, Aspartate Amino Transf (AST/SGOT) 20, Alanine Aminotransferase ( ALT/SGPT) 26, Alkaline Phosphatase 84, Total Protein 6.8, Albumin 3.2L, Globulin 3.6, Albumin/Globulin Ratio 0.9L, Lipase 319 12/29/18 13:55: Urine Color Pale yellow, Urine Appearance Clear, Urine pH 8, Urine Specific [place] 1.010, Urine Protein Negative, Urine Glucose (UA) Negative, Urine Ketones Negative, Urine Blood Negative, Urine Nitrite Negative, Urine Bilirubin Negative, Urine Urobilinogen Normal, Urine Leukocyte Esterase Negative 12/30/18 06:23: White Blood Count 5.5, Red Blood Count 4.38, Hemoglobin 12.9, Hematocrit 39.8, Mean Corpuscular Volume 91, Mean Corpuscular Hemoglobin 29.5, Mean Corpuscular Hemoglobin Concent 32.4, Red Cell Distribution Width 11.6, Platelet Count 306, Mean Platelet Volume 5.8L, Neutrophils (%) (Auto) 54.2, Lymphocytes (%) (Auto) 34.1, Monocytes (%) (Auto) 7.3, Eosinophils (%) (Auto) 3.3H, Basophils (%) (Auto ) 1.1, Sodium Level 142, Potassium Level 3.5, Chloride Level 104, Carbon Dioxide Level 30, Anion Gap 8, Blood Urea Nitrogen 10, Creatinine 0.9, Estimat Glomerular Filtration Rate , Glucose Level 94, Calcium Level 8.9, Total Bilirubin 0.3, Aspartate Amino Transf (AST/SGOT) 20, Alanine Aminotransferase ( ALT/SGPT) 20, Alkaline Phosphatase 82, Total Protein 6.9, Albumin 3.2L, Globulin 3.7, Albumin/Globulin Ratio 0.9L Height (Feet): 5 Height (Inches): 1.00 Weight (Pounds): 135 Kamini Garcia MD Dec 30, 2018 09:49
--- NOTE | 2018-12-30 09:53 | History & Physical ---
History and Physical History & Physicial SOURCE OF INFORMATION: The patient and EMR. HISTORY OF PRESENT ILLNESS: The patient is a 78-year-old female who presented with worsening abdominal pain for last couple of weeks. Also, reported balance problem following the knee surgery. The patient denies any loss of consciousness. The patient denies any nausea, vomitus, diarrhea, constipation prior to this incident. The patient is complaining of pain in the right knee. REVIEW OF SYSTEMS: All 12 elements of review of systems reviewed. Pertinent positive and negative as above. PAST MEDICAL AND SURGICAL HISTORY: Right-sided knee surgeries, hypertension, chronic pain, urinary incontinence, psychiatric disorder. ALLERGIES: NKDA. FAMILY HISTORY: Reviewed, noncontributory. SOCIAL HISTORY: The patient lives by herself. Denies history of illicit drug abuse, smoking, or alcohol abuse. PHYSICAL EXAMINATION: VITAL SIGNS: Blood pressure 140/80, temperature 98.2, pulse oximetry 98% on room air, respiratory rate 18. HEAD AND NECK: Atraumatic and normocephalic. Positive for the posttraumatic fracture lines and changes in the nasal region. CHEST: Clear to auscultation. HEART: S1, S2. Regular rate and rhythm. ABDOMEN: Soft. No organomegaly. MUSCULOSKELETAL: limited ROM of the Right knee. wide base gate. ambulates with walker NEUROLOGIC: Awake, alert, and oriented x3. IMAGING: Abd CT dated December 29 reviewed LABORATORY DATA: Dated December 29 reviewed ASSESSMENT: 1. Abdominal pain associated with abdominal mass 2. Dysequilibrium and functional immobility 3. Renal failure, age indeterminate. 3. Hypertension. 4. Psychiatric disorder. 5. Abnormal blood sugar. 6. Thrombocytopenia. 7. Right-sided chronic knee pain. 8. GI and DVT prophylaxis. Plan: proceed with Abd MRI Will consult psych Kamini Garcia MD Dec 30, 2018 09:53
--- NOTE | 2018-12-30 11:23 | NUR ---
NURSE NOTES: Attempted to do weekly weight that was due at 0600. Pt refused to get on scale, stating "I work with a program that teaches you to love you body and not to get on scales. I promised them I would not get on a scale, so I am no going to do it." Discussed with pt that the weight is for medical purpose and she does not have to know the number. Pt stated "I was not going to get on that thing."
[2018-12-30 12:00] VITALS: BP 118/83
--- NOTE | 2018-12-30 14:20 | GI Initial Consult Note ---
History of Present Illness General Date patient seen: Dec 30, 2018 Time patient seen: 14:11 Reason for Hospitalization: Multiple Trauma/Fall Referring physician: ADRIANA Reason for Consultation: ABDOMINAL PAIN Present Illness HPI 78-year-old female presents ED for evaluation. Patient is here for abdominal pain. Epigastric. Was told that she has constipation and was given stool softeners but states her pain persists. 8 out of 10, sharp, nonradiating. Denies nausea or vomiting. Denies fevers or chills. Denies chest pain or shortness of breath. Also complaining of bilateral knee pain. States that because of the pain she's been falling and been unsteady gait. Has had 20+ surgeries on the right knee. No other aggravating relieving factors. Denies any other associated symptoms GI consulted for abdominal pain. Patient seen, awake alert and oriented has complaint of generalized abdominal pain and constipation. Patient is a poor historian. Patient had a colonoscopy approximately 2-3 years ago, however is unsure of the results. Denies any history of endoscopically. States that she had over 22 surgeries in her lifetime. Abdominal pelvic CT was performed and noted the patient has possible mild enteritis involving the lower abdominal small bowel. In addition there is an incidental finding of a 2.5 x 2 cm hypodensity, probably cystic within the uncinate process of the pancreas. Patient is currently pending an MRI for further evaluation. Labs reviewed; mainly unremarkable. No anemia, no transaminitis, no leukocytosis. Home Meds Reported Medications Linaclotide (LINZESS) 145 Mcg Capsule, 145 MCG PO, CAP 12/29/18 Gabapentin* (GABAPENTIN*) 400 Mg Capsule, 400 MG ORAL THREE TIMES A DAY, CAP 0 Refills 12/29/18 Duloxetine Hcl* (CYMBALTA*) 30 Mg Capsule.dr, 30 MG ORAL DAILY, CAP 12/29/18 Docusate Calcium (DOCUSATE CALCIUM) 240 Mg Capsule, 240 MG PO BID, CAP 12/29/18 Diphenhydramine Hcl* (DIPHENHYDRAMINE HCL*) 25 Mg Capsule, 25 MG ORAL Q6H PRN for Itching, #30 CAP 0 Refills 12/29/18 Calcium Carbonate (CALCIUM) 500 Mg Tab.chew, 500 MG PO, TAB 12/29/18 Temazepam (TEMAZEPAM*) 15 Mg Capsule, 15 MG ORAL BEDTIME, #30 CAP 0 Refills 12/29/18 Ranitidine Hcl* (ZANTAC*) 150 Mg Tablet, 150 MG ORAL TWICE A DAY, TAB 12/29/18 Quetiapine Fumarate* (SEROQUEL*) 100 Mg Tablet, 100 MG ORAL DAILY, TAB 12/29/18 Oxycodone Hcl* (OXYCODONE HCL*) 10 Mg Tablet, 10 MG ORAL Q4H PRN for For Pain, TAB 12/29/18 Lorazepam* (LORAZEPAM*) 1 Mg Tablet, 1 MG ORAL THREE TIMES A DAY, TAB 12/29/18 Pantoprazole* (PANTOPRAZOLE*) 40 Mg Tablet.dr, 40 MG ORAL DAILY, TAB 12/29/18 Furosemide* (LASIX*) 40 Mg Tablet, 40 MG ORAL DAILY, TAB 09/26/18 Gabapentin* (GABAPENTIN*) 400 Mg Capsule, 400 MG ORAL THREE TIMES A DAY, CAP 0 Refills 09/26/18 Meloxicam* (MOBIC*) 15 Mg Tablet, 15 MG ORAL DAILY, #30 TAB 0 Refills 09/26/18 Lisinopril (LISINOPRIL*) 20 Mg Tablet, 20 MG ORAL DAILY, TAB 09/26/18 Famotidine (FAMOTIDINE) 20 Mg Tablet, 20 MG ORAL TWICE A DAY, #60 TAB 0 Refills 09/26/18 Pantoprazole (PANTOPRAZOLE) 20 Mg Tablet.dr, 40 MG ORAL DAILY, #10 TAB 0 Refills 09/26/18 Oxybutynin Chloride (OXYBUTYNIN CHLORIDE) 5 Mg Tablet, 10 MG ORAL DAILY, #30 TAB 0 Refills 09/26/18 Quetiapine Fumarate (SEROQUEL) 50 Mg Tablet, 50 MG ORAL TWICE A DAY, #15 TAB 0 Refills 09/26/18 Olanzapine (OLANZAPINE) 7.5 Mg Tablet, 7.5 MG ORAL DAILY, #30 TAB 0 Refills 09/26/18 Potassium Chloride (Potassium Chloride) 20 Meq Tablet.er, 20 MEQ PO DAILY, TAB 09/26/18 Oxycodone Hcl (OXYCODONE HCL) 5 Mg/5 Ml Solution, 10 ML ORAL Q6HR, ML 0 Refills 09/26/18 Med list reviewed/reconciled: Yes Allergies: Coded Allergies: No Known Allergies (Unverified , 12/15/18) Patient History History Provided By: Patient, Medical Record PMH Narrative Past Medical History: HTN Past Surgical History: other - knee surgery Pertinent Family History: none Social History: Denies: smoking, alcohol use, drug use Now: No Immunizations: UTD Reviewed Nursing Documentation: PMH: Agreed; PSxH: Agreed Nursing Documentation-PM Past Medical History: No History, Except For Hx Hypertension: Yes Social History: Denies: smoking, alcohol use, drug use, other Review of Systems All Other Systems: negative except mentioned in HPI Physical Exam Vital Signs Date Time Temp Pulse Resp B/P (MAP) Pulse Ox O2 Delivery O2 Flow Rate FiO2 12/29/18 11:58 98.1 82 18 130/64 98 Room Air Sp02 EP Interpretation: reviewed, normal Labs Laboratory Tests Test 12/30/18 06:23 White Blood Count 5.5 K/UL (4.8-10.8) Red Blood Count 4.38 M/UL (4.20-5.40) Hemoglobin 12.9 G/DL (12.0-16.0) Hematocrit 39.8 % (37.0-47.0) Mean Corpuscular Volume 91 FL (80-99) Mean Corpuscular Hemoglobin 29.5 PG (27.0-31.0) Mean Corpuscular Hemoglobin Concent 32.4 G/DL (32.0-36.0) Red Cell Distribution Width 11.6 % (11.6-14.8) Platelet Count 306 K/UL (150-450) Mean Platelet Volume 5.8 FL (6.5-10.1) L Neutrophils (%) (Auto) 54.2 % (45.0-75.0) Lymphocytes (%) (Auto) 34.1 % (20.0-45.0) Monocytes (%) (Auto) 7.3 % (1.0-10.0) Eosinophils (%) (Auto) 3.3 % (0.0-3.0) H Basophils (%) (Auto) 1.1 % (0.0-2.0) Sodium Level 142 MMOL/L (136-145) Potassium Level 3.5 MMOL/L (3.5-5.1) Chloride Level 104 MMOL/L (98-107) Carbon Dioxide Level 30 MMOL/L (21-32) Anion Gap 8 mmol/L (5-15) Blood Urea Nitrogen 10 mg/dL (7-18) Creatinine 0.9 MG/DL (0.55-1.30) Estimat Glomerular Filtration Rate mL/min (>60) Glucose Level 94 MG/DL (74-106) Calcium Level 8.9 MG/DL (8.5-10.1) Total Bilirubin 0.3 MG/DL (0.2-1.0) Aspartate Amino Transf (AST/SGOT) 20 U/L (15-37) Alanine Aminotransferase (ALT/SGPT) 20 U/L (12-78) Alkaline Phosphatase 82 U/L (46-116) Total Protein 6.9 G/DL (6.4-8.2) Albumin 3.2 G/DL (3.4-5.0) L Globulin 3.7 g/dL Albumin/Globulin Ratio 0.9 (1.0-2.7) L General Appearance: well appearing, no apparent distress, alert, obese Head: normocephalic EENT: PERRL/EOMI, normal ENT inspection Neck: supple Respiratory: normal breath sounds, no respiratory distress Cardiovascular: normal rate Gastrointestinal: normal inspection, non tender, soft, normal bowel sounds, non -distended Rectal: deferred Genitourinary: no CVA tenderness Musculoskeletal: normal inspection, back normal Neurologic: normal inspection, alert, oriented x3, responsive Psychiatric: normal inspection, judgement/insight normal, memory normal Skin: normal inspection, normal color, no rash, warm/dry, palpation normal, well hydrated Lymphatic: normal inspection, no adenopathy Current Medications Current Medications Medications (Trade) Dose Ordered Sig/Ainsley Route PRN Reason Start Time Stop Time Status Last Admin Dose Admin Calcium Carbonate (Tums) 500 mg THREE TIMES A DAY ORAL 12/29/18 18:00 01/28/19 17:59 12/30/18 12:49 Diphenhydramine HCl (Benadryl) 25 mg Q6H PRN ORAL Itching 12/29/18 17:00 01/28/19 16:59 Docusate Sodium (Colace) 250 mg BID ORAL 12/29/18 18:00 01/28/19 17:59 12/30/18 08:52 Duloxetine HCl (Cymbalta) 30 mg DAILY ORAL 12/30/18 09:00 01/29/19 08:59 12/30/18 08:52 Enoxaparin Sodium (Lovenox) 40 mg DAILY SUBQ 12/30/18 09:00 01/29/19 08:59 12/30/18 08:55 Gabapentin (Neurontin) 400 mg THREE TIMES A DAY ORAL 12/29/18 18:00 01/28/19 17:59 12/30/18 12:49 Gadobutrol (Gadavist) 7.5 mmol ONCE PRN IV FOR RADIOLOGY USE 12/30/18 09:45 01/01/19 23:59 Lorazepam (Ativan) 1 mg THREE TIMES A DAY ORAL 12/29/18 18:00 01/05/19 17:59 12/30/18 12:49 Oxycodone HCl (Roxicodone) 10 mg Q4H PRN ORAL pain 4-10 12/29/18 18:45 01/05/19 18:29 12/30/18 04:57 Pantoprazole (Protonix) 40 mg DAILY ORAL 12/30/18 09:00 01/29/19 08:59 12/30/18 08:52 Temazepam (Restoril) 15 mg BEDTIME ORAL 12/29/18 21:00 01/05/19 20:59 12/29/18 20:13 GI: Plan Problems: (1) Abdominal pain of unknown etiology (2) Constipation (3) Pancreatic lesion Plan Abdominal pelvis CT reviewed. Possible mild enteritis involving lower abdominal small bowel. Incidental 2.5 x 2 cm hypodensity, probably cystic within the uncinate process of the pancreas. Lipase levels are within normal limits Possible endoscopic ultrasound tomorrow pending MRI, will follow up. Will tentatively place the patient n.p.o. at midnight. - Hold all blood thinners tonight The patient is on Colace 250 mg twice daily, will add MiraLAX nightly Patient is on regular diet PPI follow labs We will follow with additional recommendations Discussed with Dr. Goyal. Thank you for this patient referral, we will follow. The patient was seen and examined at bedside and all new and available data was reviewed in the patients chart. I agree with the above findings, impression and plan. (Patient seen earlier today. Signature stamp does not reflect patient encounter time.). - MD Danielle CaldwellSt. Mary'[facility] HospitalFide OFFSET DUPLICATING MACHINE OPERATOR Dec 30, 2018 14:20
--- NOTE | 2018-12-30 15:51 | NUR ---
MRI ABDOMEN W/WO COMPLETED.
[2018-12-30 16:00] VITALS: BP 129/72
--- NOTE | 2018-12-30 17:52 | NUR ---
P.T NOTE: LATE ENTRY 1030 P.T EVALUATION COMPLETED. PATIENT IS CURRENTLY AT BASELINE INDEPENDENT WITH FUNCTIONAL MOBILITIES AND GAIT/LOCOMOTION THEREFORE SKILLED P.T SERVICE IS NOT WARRANTED AT THIS TIME. D/C P.T SERVICES . THANK YOU FOR THIS REFERRAL.
--- NOTE | 2018-12-30 19:40 | NUR ---
NURSE NOTES: Received report from DINESH Koenig. Received pt lying in bed, asleep, easily arousable by verbal stimuli, AOX4, denies pain, no distress noted. Bed in lowest position and locked, side rails up x 2, call light within reach. Will continue to monitor.
--- NOTE | 2018-12-30 19:42 | NUR ---
HAND-OFF: Report given to DINESH Balderas.
[2018-12-30 20:00] VITALS: BP 121/66
[2018-12-30] MEDS: Miralax 17gm pkt ORAL SCH (21:00)
--- NOTE | 2018-12-30 23:37 | General Progress Note ---
Assessment/Plan Problem List: (1) MDD (major depressive disorder), recurrent episode, moderate ICD Codes: F33.1 - Major depressive disorder, recurrent, moderate SNOMED: 10573178, 742983887 Subjective Neurologic/Psychiatric: Reports: anxiety, depressed, emotional problems Allergies: Coded Allergies: No Known Allergies (Unverified , 09/26/18) Objective Last 24 Hour Vital Signs Date Time Temp Pulse Resp B/P (MAP) Pulse Ox O2 Delivery O2 Flow Rate FiO2 12/30/18 21:00 Room Air 12/30/18 20:00 98.4 20 121/66 (84) 95 12/30/18 16:00 99.3 72 16 129/72 (91) 97 12/30/18 12:00 98.0 76 16 118/83 (95) 97 12/30/18 09:00 Room Air 12/30/18 08:00 98.0 74 16 102/65 (77) 96 12/30/18 04:00 97.7 64 16 132/85 (101) 99 12/30/18 00:00 17 Intake and Output 12/29/18 12/30/18 19:00 07:00 Intake Total 360 ml 450 ml Balance 360 ml 450 ml Intake Oral 360 ml 450 ml # Voids 3 Laboratory Tests 12/30/18 06:23: White Blood Count 5.5, Red Blood Count 4.38, Hemoglobin 12.9, Hematocrit 39.8, Mean Corpuscular Volume 91, Mean Corpuscular Hemoglobin 29.5, Mean Corpuscular Hemoglobin Concent 32.4, Red Cell Distribution Width 11.6, Platelet Count 306, Mean Platelet Volume 5.8L, Neutrophils (%) (Auto) 54.2, Lymphocytes (%) (Auto) 34.1, Monocytes (%) (Auto) 7.3, Eosinophils (%) (Auto) 3.3H, Basophils (%) (Auto ) 1.1, Sodium Level 142, Potassium Level 3.5, Chloride Level 104, Carbon Dioxide Level 30, Anion Gap 8, Blood Urea Nitrogen 10, Creatinine 0.9, Estimat Glomerular Filtration Rate , Glucose Level 94, Calcium Level 8.9, Total Bilirubin 0.3, Aspartate Amino Transf (AST/SGOT) 20, Alanine Aminotransferase ( ALT/SGPT) 20, Alkaline Phosphatase 82, Total Protein 6.9, Albumin 3.2L, Globulin 3.7, Albumin/Globulin Ratio 0.9L Height (Feet): 5 Height (Inches): 1.00 Weight (Pounds): 135 General Appearance: WD/WN, no apparent distress, alert Neurologic: alert, oriented x 3, depressed affect Sirena Santa MD Dec 30, 2018 23:37
[2018-12-31] VITALS: BP 124/80
[2018-12-31 04:00] VITALS: BP 136/75
--- NOTE | 2018-12-31 07:00 | NUR ---
HAND-OFF: Report given to DINESH oKenig. Pt in stable condition.
--- NOTE | 2018-12-31 07:12 | NUR ---
NURSE NOTES: Report received from DINESH Balderas. Pt in bed resting, awake, talkative, no complaints of pain, NPO for possible procedure, discussed NPO and possible procedure with Pt, bed in lowest position, call light within reach.
--- NOTE | 2018-12-31 07:20 | NUR ---
NURSE NOTES: Pt is NPO for possible EUS. Asked HAKAN Mckeon for Dr. Goyal if pt is strict NPO or if she can water. Pt takes PO medications with applesauce. Asked if pt can take am med. Mike said only sips of water, will hold am meds
[2018-12-31 07:33] LABS: INR 1.1 (0.9-1.1)
[2018-12-31 07:43] LABS: ANION GAP 8 mmol/L (5-15); BLOOD UREA NITROGEN 11 mg/dL (7-18); CALCIUM 8.6 MG/DL (8.5-10.1); CARBON DIOXIDE 29 MMOL/L (21-32); CHLORIDE 103 MMOL/L (98-107); CREATININE 0.9 MG/DL (0.55-1.30); POTASSIUM 3.6 MMOL/L (3.5-5.1); SODIUM 140 MMOL/L (136-145)
[2018-12-31 07:45] LABS: BASOPHILS % (AUTO) 1.1 % (0.0-2.0); EOSINOPHILS % (AUTO) 3.2 % (0.0-3.0); HEMATOCRIT 34.3 % (37.0-47.0); HEMOGLOBIN 11.5 G/DL (12.0-16.0); LYMPHOCYTES % (AUTO) 24.3 % (20.0-45.0); MEAN CORPUSCULAR VOLUME 91 FL (80-99); MONOCYTES % (AUTO) 6.9 % (1.0-10.0); NEUTROPHILS % (AUTO) 64.4 % (45.0-75.0); PLATELET COUNT 238 K/UL (150-450); RED BLOOD COUNT 3.77 M/UL (4.20-5.40); RED CELL DISTRIBUTION WIDTH 11.6 % (11.6-14.8); WHITE BLOOD COUNT 5.8 K/UL (4.8-10.8)
[2018-12-31 08:00] VITALS: BP 135/76
[2018-12-31] MEDS: Enoxaparin 40mg Inj SUBQ SCH ×2 (09:00→10:16)
[2018-12-31] MEDS: LORazepam 1mg tab ORAL SCH ×4 (09:00→17:13)
[2018-12-31] MEDS: DULoxetine 30mg cap ORAL SCH ×2 (09:00→10:14)
[2018-12-31] MEDS: Docusate 250mg cap ORAL SCH ×3 (09:00→17:13)
[2018-12-31] MEDS: Tums 500mg ORAL SCH ×4 (09:00→17:13)
[2018-12-31] MEDS: oxyCODONE 5mg IR tab ORAL PRN ×3 (10:17→18:24)
--- NOTE | 2018-12-31 10:18 | Diagnostic Imaging Report ---
Indication: Pancreatic cystic lesions. Follow-up and further evaluation Technique: MRI of the abdomen was performed in a 1.5 Devi magnet. Pulse sequences obtained include coronal and axial T2 single shot fast spin echo breathhold, Axial T1 FSPGR in/out phase, Axial T2 FSE w/ fat saturation, Axial 2-D FIESTA, pre and post gadolinium, dynamic Ax/Cor T1 LAVA. Comparison: CT abdomen pelvis 12/29/2018 Findings: There is an approximately 2.5 cm well-circumscribed cystic lesion in the uncinate process of the pancreas adjacent to the distal part of the CBD. This cyst does not enhance with gadolinium on dynamic images. CT shows no evidence of calcification. There is no scar or nodularity. The main pancreatic duct is not dilated. There is a second cyst also nonenhancing at the junction of the body and the head of the pancreas measuring about 1 cm. CBD is prominent measuring about 12 mm. Gallbladder is unremarkable. There is considerable breathing motion. There is generalized atrophy of the pancreas. Hiatal hernia is noted. There are multiple tiny cysts within both kidneys. There is a 3.4 cm cyst in the left kidney noted. There is no adrenal mass or lymphadenopathy identified within the abdomen. The liver is grossly unremarkable. IMPRESSION: Two nonenhancing well-circumscribed cystic foci within the pancreas measuring 2.5 cm in the uncinate process and 1 cm in the head of the pancreas. Based on the appearance, a specific diagnosis is not possible. Serous cystic neoplasm is still possible, but these usually have calcification or central scar, neither of which is seen. Would consider inflammatory pseudocyst if the patient has a history of pancreatitis. Otherwise, the main differential consideration is mucinous cystic neoplasm versus side branch intraductal papillary mucinous neoplasm (IPMN). In terms of management, recommend obtaining follow-up CT or MRI every 6 months. The larger 2.5 cm cystic focus may be amenable to aspiration under endoscopic ultrasound, which is usually reserved for lesions greater than 3 cm in size.
--- NOTE | 2018-12-31 11:29 | GI Progress Note ---
Assessment/Plan Problems: (1) Pancreatic lesion ICD Codes: K86.9 - Disease of pancreas, unspecified SNOMED: 5878925 (2) Abdominal pain of unknown etiology ICD Codes: R10.9 - Unspecified abdominal pain SNOMED: 172530649 (3) Constipation ICD Codes: K59.00 - Constipation, unspecified SNOMED: 16035343 (4) Unsteady gait ICD Codes: R26.81 - Unsteadiness on feet SNOMED: 741882781, 84991743 Status: stable, unchanged Status Narrative Discussed with Dr. Goyal Assessment/Plan Abdominal pelvis CT reviewed. Possible mild enteritis involving lower abdominal small bowel. Incidental 2.5 x 2 cm hypodensity, probably cystic within the uncinate process of the pancreas. Lipase levels are within normal limits Abdominal MRI reviewed >> Two nonenhancing well-circumscribed cystic foci within the pancreas measuring 2.5 cm in the uncinate process and 1 cm in the head of the pancreas. EUS will be rescheduled to tomorrow. advance diet, NPO @ [place]. - Hold all blood thinners tonight Colace 250 mg twice daily, will add MiraLAX nightly PPI follow labs, [id number] will need repeat imaging q6 months to monitor pancreatic cyst We will follow with additional recommendations The patient was seen and examined at bedside and all new and available data was reviewed in the patients chart. I agree with the above findings, impression and plan. (Patient seen earlier today. Signature stamp does not reflect patient encounter time.). - Alberto Goyal MD Subjective Gastrointestinal/Abdominal: Reports: no symptoms Objective Last 24 Hour Vital Signs Date Time Temp Pulse Resp B/P (MAP) Pulse Ox O2 Delivery O2 Flow Rate FiO2 12/31/18 09:00 Room Air 12/31/18 08:00 98.8 63 18 135/76 (95) 95 12/31/18 04:00 97.5 70 20 136/75 (95) 96 12/31/18 00:00 97.6 68 20 124/80 (95) 99 12/30/18 21:00 Room Air 12/30/18 20:00 98.4 66 20 121/66 (84) 95 12/30/18 16:00 99.3 72 16 129/72 (91) 97 12/30/18 12:00 98.0 76 16 118/83 (95) 97 Intake and Output 12/30/18 12/31/18 18:59 06:59 Intake Total 1160 ml 120 ml Balance 1160 ml 120 ml Intake Oral 1160 ml 120 ml # Voids 1 Laboratory Tests Test 12/31/18 05:56 White Blood Count 5.8 K/UL (4.8-10.8) Red Blood Count 3.77 M/UL (4.20-5.40) L Hemoglobin 11.5 G/DL (12.0-16.0) L Hematocrit 34.3 % (37.0-47.0) L Mean Corpuscular Volume 91 FL (80-99) Mean Corpuscular Hemoglobin 30.3 PG (27.0-31.0) Mean Corpuscular Hemoglobin Concent 33.4 G/DL (32.0-36.0) Red Cell Distribution Width 11.6 % (11.6-14.8) Platelet Count 238 K/UL (150-450) Mean Platelet Volume 5.1 FL (6.5-10.1) L Neutrophils (%) (Auto) 64.4 % (45.0-75.0) Lymphocytes (%) (Auto) 24.3 % (20.0-45.0) Monocytes (%) (Auto) 6.9 % (1.0-10.0) Eosinophils (%) (Auto) 3.2 % (0.0-3.0) H Basophils (%) (Auto) 1.1 % (0.0-2.0) Prothrombin Time 11.2 SEC (9.30-11.50) Prothromb Time International Ratio 1.1 (0.9-1.1) Activated Partial Thromboplast Time 27 SEC (23-33) Sodium Level 140 MMOL/L (136-145) Potassium Level 3.6 MMOL/L (3.5-5.1) Chloride Level 103 MMOL/L (98-107) Carbon Dioxide Level 29 MMOL/L (21-32) Anion Gap 8 mmol/L (5-15) Blood Urea Nitrogen 11 mg/dL (7-18) Creatinine 0.9 MG/DL (0.55-1.30) Estimat Glomerular Filtration Rate mL/min (>60) Glucose Level 93 MG/DL (74-106) Calcium Level 8.6 MG/DL (8.5-10.1) Height (Feet): 5 Height (Inches): 1.00 Weight (Pounds): 135 General Appearance: WD/WN, no apparent distress, alert Cardiovascular: normal rate Respiratory/Chest: normal breath sounds, no respiratory distress Abdominal Exam: normal bowel sounds, non tender, soft Extremities: normal range of motion, non-tender Brock Santos NP Dec 31, 2018 11:29
[2018-12-31 12:00] VITALS: BP 114/61
[2018-12-31 16:00] VITALS: BP 126/77
--- NOTE | 2018-12-31 16:12 | General Progress Note ---
Assessment/Plan Assessment/Plan S: I am feeling weak O: appears comfortable. Sitting on her bed side. complains of mild abdominal pain PHYSICAL EXAMINATION: HEAD AND NECK: Atraumatic and normocephalic. Positive for the posttraumatic fracture lines and changes in the nasal region. CHEST: Clear to auscultation. HEART: S1, S2. Regular rate and rhythm. ABDOMEN: Soft. No organomegaly. MUSCULOSKELETAL: No gross focal motor deficit. NEUROLOGIC: Awake, alert, and oriented x3. PHYSICAL EXAMINATION:HEAD AND NECK: . post closed reduction of the nasal bone , .CHEST: Clear to auscultation. HEART: S1, S2. Regular rate and rhythm.ABDOMEN: Soft. No organomegaly. MUSCULOSKELETAL: Decreased ROM in right knee, Wide gate . lack of coordination NEUROLOGIC: Awake, alert, and oriented x3. Meds: reviewed and reconciled in the chart ASSESSMENT: 1. Acute encephalopathy, likely possibility of the cardiovascular insufficiency. 2. Nasal Septum fracture: post Closed reduction 3. Renal failure, age indeterminate. 3. Hypertension. 4. Psychiatric disorder. 5. Abnormal blood sugar. 6. Thrombocytopenia. 7. Right-sided chronic knee pain. 8. GI and DVT prophylaxis. Plan: Equivocal Pancreatic Mass GI workup in progress SNIF placement , high risk for fall Subjective Allergies: Coded Allergies: No Known Allergies (Unverified , 09/26/18) Objective Last 24 Hour Vital Signs Date Time Temp Pulse Resp B/P (MAP) Pulse Ox O2 Delivery O2 Flow Rate FiO2 12/31/18 12:00 98.2 76 19 114/61 (78) 96 12/31/18 09:00 Room Air 12/31/18 08:00 98.8 63 18 135/76 (95) 95 12/31/18 04:00 97.5 70 20 136/75 (95) 96 12/31/18 00:00 97.6 68 20 124/80 (95) 99 12/30/18 21:00 Room Air 12/30/18 20:00 98.4 66 20 121/66 (84) 95 Intake and Output 12/30/18 12/31/18 18:59 06:59 Intake Total 1160 ml 120 ml Balance 1160 ml 120 ml Intake Oral 1160 ml 120 ml # Voids 1 Laboratory Tests 12/31/18 05:56: White Blood Count 5.8, Red Blood Count 3.77L, Hemoglobin 11.5L, Hematocrit 34.3L , Mean Corpuscular Volume 91, Mean Corpuscular Hemoglobin 30.3, Mean Corpuscular Hemoglobin Concent 33.4, Red Cell Distribution Width 11.6, Platelet Count 238, Mean Platelet Volume 5.1L, Neutrophils (%) (Auto) 64.4, Lymphocytes ( %) (Auto) 24.3, Monocytes (%) (Auto) 6.9, Eosinophils (%) (Auto) 3.2H, Basophils (%) (Auto) 1.1, Prothrombin Time 11.2, Prothromb Time International Ratio 1.1, Activated Partial Thromboplast Time 27, Sodium Level 140, Potassium Level 3.6, Chloride Level 103, Carbon Dioxide Level 29, Anion Gap 8, Blood Urea Nitrogen 11, Creatinine 0.9, Estimat Glomerular Filtration Rate , Glucose Level 93, Calcium Level 8.6 Height (Feet): 5 Height (Inches): 1.00 Weight (Pounds): 135 Kamini Garcia MD Dec 31, 2018 16:12
--- NOTE | 2018-12-31 19:11 | NUR ---
HAND-OFF: Report given to DINESH Balderas. Pt stable.
[2018-12-31 20:00] VITALS: BP 95/54
[2018-12-31] MEDS: Miralax 17gm pkt ORAL SCH (20:32)
[2019-01-01] VITALS (10 sets, daily range): BP systolic 111–150; BP diastolic 62–87
--- NOTE | 2019-01-01 06:45 | NUR ---
NURSE NOTES: GI lab called, pt is scheduled for GI procedure after 12 noon.
--- NOTE | 2019-01-01 07:45 | NUR ---
NURSE NOTES: Pt in bed resting, awake, verbally responsive. no complaints of pain, NPO for procedure, bed in lowest position, call light within reach. will cont to monitor.
--- NOTE | 2019-01-01 07:49 | NUR ---
HAND-OFF: Report given to LILI Donnelly. Pt in stable condition.
--- NOTE | 2019-01-01 08:10 | NUR ---
NURSE NOTES: obtained new order for IVF since patient kept NPO. Procedure scheduled for noon. patient is ambulatory with a walker. no acute distress noted. will cont to monitor.
[2019-01-01 08:13] LABS: BASOPHILS % (AUTO) 0.8 % (0.0-2.0); EOSINOPHILS % (AUTO) 3.3 % (0.0-3.0); HEMATOCRIT 34.7 % (37.0-47.0); HEMOGLOBIN 11.6 G/DL (12.0-16.0); LYMPHOCYTES % (AUTO) 28.4 % (20.0-45.0); MEAN CORPUSCULAR VOLUME 90 FL (80-99); NEUTROPHILS % (AUTO) 60.5 % (45.0-75.0); PLATELET COUNT 256 K/UL (150-450); RED BLOOD COUNT 3.84 M/UL (4.20-5.40); RED CELL DISTRIBUTION WIDTH 11.9 % (11.6-14.8)
[2019-01-01 08:35] LABS: ANION GAP 5 mmol/L (5-15); BLOOD UREA NITROGEN 11 mg/dL (7-18); CALCIUM 8.4 MG/DL (8.5-10.1); CARBON DIOXIDE 30 MMOL/L (21-32); CHLORIDE 106 MMOL/L (98-107); CREATININE 0.8 MG/DL (0.55-1.30); POTASSIUM 3.8 MMOL/L (3.5-5.1); SODIUM 141 MMOL/L (136-145)
--- NOTE | 2019-01-01 08:51 | NUR ---
*-* CASE MANAGEMENT NOTES *-* PATIENT HAS BEEN ACCEPTED BACK AT [facility] TO ROOM 49-A PER DEBO WHEN PATIENT IS READY TO DC.
[2019-01-01] MEDS: Tums 500mg ORAL SCH ×3 (09:00→17:22)
[2019-01-01] MEDS: DULoxetine 30mg cap ORAL SCH (09:00)
[2019-01-01] MEDS: LORazepam 1mg tab ORAL SCH ×3 (09:00→17:21)
[2019-01-01] MEDS: Enoxaparin 40mg Inj SUBQ SCH (09:00)
[2019-01-01] MEDS: Docusate 250mg cap ORAL SCH ×2 (09:00→17:22)
[2019-01-01] MEDS: D5 1/2NS 1,000 ML IV SCH ×2 (10:59→20:54)
[2019-01-01] MEDS ORDERED: NS 500ML IVPB ONE ×2 (12:45→13:15)
--- NOTE | 2019-01-01 12:51 | Pre-Procedure Note/Attestation ---
Pre-Procedure Note/Attestation Complete Prior to Procedure Planned Procedure: not applicable Procedure Narrative: egd/EUS Indications for Procedure Pre-Operative Diagnosis: panc lesion Attestation I attest that I discussed the nature of the procedure; its benefits; risks and complications; and alternatives (and the risks and benefits of such alternatives ), prior to the procedure, with the patient (or the patient's legal vendor representatives). I attest that, if there was a reasonable possibility of needing a blood transfusion, the patient (or the patient's legal vendor representatives) was given the [facility] standardized written summary, pursuant to the Garrett Kirby Blood Safety Act ([place] Health and Safety Code # 1645, as amended). I attest that I re-evaluated the patient just prior to the surgery and that there has been no change in the patient's H&P, except as documented below: Alberto Goyal MD Jan 01, 2019 12:51
--- NOTE | 2019-01-01 13:05 | Endoscopy Procedure Note ---
Endoscopy Procedure Note General Indication for Procedure: panc cyst Procedures Performed: EGD, other - EUS Operative Findings/Diagnosis: same Specimen: yes Pt Tolerated Procedure Well: Yes Estimated Blood Loss: none Anesthesia Anesthesiologist: ana laura Anesthesia: MAC Inserted Devices Implant(s) used?: No GI Core Measures 50 yrs or older w/o bx or poly: Not Applicable 10yrs. F/U not recommended: Not Applicable Alberto Goyal MD Jan 01, 2019 13:04
[2019-01-01] MEDS ORDERED: Heplock Flush 100 units/ml 3 ml syr IV ONE (13:15)
[2019-01-01] MEDS ORDERED: Heplock Flush 100 units/ml 3 ml syr ONE (13:20)
--- NOTE | 2019-01-01 13:25 | Anethesia Preoperative Eval ---
Anesthesia Pre-op PMH/ROS General Date of Evaluation: Jan 01, 2019 Time of Evaluation: 12:40 Anesthesiologist: Carla ASA Score: ASA 3 Mallampati Score Class I : Soft palate, uvula, fauces, pillars visible Class II: Soft palate, uvula, fauces visible Class III: Soft palate, base of uvula visible Class IV: Only hard plate visible Mallampati Classification: Class III Surgeon: Jyotsna Diagnosis: Abdominal pain Surgical Procedure: EGD with EUD Anesthesia History: none Family History: no anesthesia problems Allergies: Coded Allergies: No Known Allergies (Unverified , 09/26/18) Medications: see eMAR Patient NPO?: Yes Past Medical History Cardiovascular: Reports: HTN; Denies: CAD, MT, valve dz, arrhythmia, other Pulmonary: Denies: asthma, COPD, HARDY, other Gastrointestinal/Genitourinary: Reports: GERD Neurologic/Psychiatric: Reports: depression/anxiety, other - schizophrenia; Denies: dementia, CVA, TIA Endocrine: Denies: DM, hypothyroidism, steroids, other HEENT: Denies: cataract (L), cataract (R), glaucoma, NULATO (L), NULATO (R), other Hematology/Immune: Denies: anemia, DVT, bleeding disorder, other Musculoskeletal/Integumentary: Reports: DJD; Denies: OA, RA, DDD, edema, other Other: other - overweight PMH Narrative: as above PSxH Narrative: see H&P Anesthesia Pre-op Phys. Exam Physician Exam Last Vital Signs Date Time Temp Pulse Resp B/P (MAP) Pulse Ox O2 Delivery O2 Flow Rate FiO2 01/01/19 12:00 98.9 75 19 136/87 (103) 97 01/01/19 09:10 Room Air Constitutional: NAD Neurologic: other - unable to obtaine Cardiovascular: RRR, no M/R/G Respiratory: CTA Gastrointestinal: S/NT/ND Airway Exam Mallampati Score: Class III MO: limited Neck: stiff ROM: limited Teeth: missing Anesthesia Pre-op A/P Labs Hematology Test 01/01/19 06:19 White Blood Count 5.0 K/UL (4.8-10.8) Red Blood Count 3.84 M/UL (4.20-5.40) L Hemoglobin 11.6 G/DL (12.0-16.0) L Hematocrit 34.7 % (37.0-47.0) L Mean Corpuscular Volume 90 FL (80-99) Mean Corpuscular Hemoglobin 30.3 PG (27.0-31.0) Mean Corpuscular Hemoglobin Concent 33.5 G/DL (32.0-36.0) Red Cell Distribution Width 11.9 % (11.6-14.8) Platelet Count 256 K/UL (150-450) Mean Platelet Volume 5.6 FL (6.5-10.1) L Neutrophils (%) (Auto) 60.5 % (45.0-75.0) Lymphocytes (%) (Auto) 28.4 % (20.0-45.0) Monocytes (%) (Auto) 7.0 % (1.0-10.0) Eosinophils (%) (Auto) 3.3 % (0.0-3.0) H Basophils (%) (Auto) 0.8 % (0.0-2.0) Coagulation Test 01/01/19 06:19 Prothrombin Time 11.0 SEC (9.30-11.50) Prothromb Time International Ratio 1.0 (0.9-1.1) Activated Partial Thromboplast Time 26 SEC (23-33) Chemistry Test 01/01/19 06:19 Sodium Level 141 MMOL/L (136-145) Potassium Level 3.8 MMOL/L (3.5-5.1) Chloride Level 106 MMOL/L (98-107) Carbon Dioxide Level 30 MMOL/L (21-32) Anion Gap 5 mmol/L (5-15) Blood Urea Nitrogen 11 mg/dL (7-18) Creatinine 0.8 MG/DL (0.55-1.30) Estimat Glomerular Filtration Rate mL/min (>60) Glucose Level 88 MG/DL (74-106) Calcium Level 8.4 MG/DL (8.5-10.1) L CA 19-9 Antigen Pending Risk Assessment & Plan Assessment: ASA 3 Plan: MAC Status Change Before Surgery: Bradley Blake MD Jan 01, 2019 13:25
[2019-01-01] MEDS ORDERED: fentaNYL 100 mcg/2 mL IV PRN (13:30)
--- NOTE | 2019-01-01 13:45 | Immediate Post-Op Evaluation ---
Immediate Post-Op Evalulation Immediate Post-Op Evalulation Procedure: EGD with EUD Date of Evaluation: Jan 01, 2019 Time of Evaluation: 13:44 IV Fluids: 300 Blood Products: none Estimated Blood Loss: none Urinary Output: none Blood Pressure Systolic: 136 Blood Pressure Diastolic: 68 Pulse Rate: 64 Respiratory Rate: 20 O2 Sat by Pulse Oximetry: 98 Temperature (Fahrenheit): 97.8 Pain Score (1-10): 1 Nausea: No Vomiting: No Complications none Patient Status: awake, patent, none Hydration Status: adequate Bradley Aguirre MD Jan 01, 2019 13:45
--- NOTE | 2019-01-01 13:50 | 48 Hour Post Anesthesia Eval ---
Post Anesthesia Evaluation Procedure: EGD with EUD Date of Evaluation: Jan 01, 2019 Time of Evaluation: 13:48 Blood Pressure Systolic: 112 0: 54 Pulse Rate: 77 Respiratory Rate: 18 Temperature (Fahrenheit): 97.8 O2 Sat by Pulse Oximetry: 99 Airway: patent Nausea: No Vomiting: No Pain Intensity: 2 Hydration Status: adequate Cardiopulmonary Status: stable Mental Status/LOC: patient returned to baseline Follow-up Care/Observations: n/a Post-Anesthesia Complications: none Follow-up care needed: N/A Bradley Aguirre MD Jan 01, 2019 13:50
[2019-01-01] MEDS: oxyCODONE 5mg IR tab ORAL PRN (14:20)
--- NOTE | 2019-01-01 15:32 | NUR ---
*-* DISCHARGE PLANNING *-* PATIENT HAS BEEN REFERRED TO: [facility] P:[phone] F:[phone]
--- NOTE | 2019-01-01 16:00 | General Progress Note ---
Assessment/Plan Problem List: (1) MDD (major depressive disorder), recurrent episode, moderate ICD Codes: F33.1 - Major depressive disorder, recurrent, moderate SNOMED: 80900721, 995625263 Status: stable Assessment/Plan cont current meds provided ro/st Subjective Date patient seen: Dec 31, 2018 Neurologic/Psychiatric: Reports: anxiety, depressed, emotional problems Allergies: Coded Allergies: No Known Allergies (Unverified , 09/26/18) Subjective [employer] was down last night/late entry the po was anxious regarding endoscopy Objective Last 24 Hour Vital Signs Date Time Temp Pulse Resp B/P (MAP) Pulse Ox O2 Delivery O2 Flow Rate FiO2 01/01/19 14:00 97.4 60 18 138/63 96 Room Air 01/01/19 13:55 59 16 140/80 95 Room Air 01/01/19 13:50 59 15 150/71 97 Nasal Cannula 3 01/01/19 13:50 77 18 99 01/01/19 13:45 64 20 98 01/01/19 13:44 97.5 64 20 136/72 98 Nasal Cannula 3 01/01/19 12:00 98.9 75 19 136/87 (103) 97 01/01/19 09:10 Room Air 01/01/19 08:00 99.0 63 18 127/73 (91) 96 01/01/19 04:00 98.0 64 18 111/62 (78) 97 01/01/19 00:00 97.7 63 18 116/70 (85) 94 12/31/18 21:00 Room Air 12/31/18 20:00 98.5 70 18 95/54 (68) 94 12/31/18 16:00 98.2 63 18 126/77 (93) 95 Intake and Output 12/31/18 01/01/19 18:59 06:59 Intake Total 480 ml 2 ml Balance 480 ml 2 ml Intake Oral 480 ml Other 2 ml # Bowel Movements 1 Laboratory Tests 01/01/19 06:19: White Blood Count 5.0, Red Blood Count 3.84L, Hemoglobin 11.6L, Hematocrit 34.7L , Mean Corpuscular Volume 90, Mean Corpuscular Hemoglobin 30.3, Mean Corpuscular Hemoglobin Concent 33.5, Red Cell Distribution Width 11.9, Platelet Count 256, Mean Platelet Volume 5.6L, Neutrophils (%) (Auto) 60.5, Lymphocytes ( %) (Auto) 28.4, Monocytes (%) (Auto) 7.0, Eosinophils (%) (Auto) 3.3H, Basophils (%) (Auto) 0.8, Prothrombin Time 11.0, Prothromb Time International Ratio 1.0, Activated Partial Thromboplast Time 26, Sodium Level 141, Potassium Level 3.8, Chloride Level 106, Carbon Dioxide Level 30, Anion Gap 5, Blood Urea Nitrogen 11, Creatinine 0.8, Estimat Glomerular Filtration Rate , Glucose Level 88, Calcium Level 8.4L, CA 19-9 Antigen [Pending] Height (Feet): 5 Height (Inches): 1.00 Weight (Pounds): 135 General Appearance: alert, moderate distress, agitated Neurologic: oriented x 3, responsive, depressed affect Sirena Santa MD Jan 01, 2019 16:00
--- NOTE | 2019-01-01 16:02 | General Progress Note ---
Assessment/Plan Problem List: (1) MDD (major depressive disorder), recurrent episode, moderate ICD Codes: F33.1 - Major depressive disorder, recurrent, moderate SNOMED: 32093135, 756644698 Status: stable Assessment/Plan cont current meds provided ro/st increase Cymbalta Subjective Neurologic/Psychiatric: Reports: anxiety, depressed Allergies: Coded Allergies: No Known Allergies (Unverified , 09/26/18) Subjective the pt cont to be anxious and depressed Objective Last 24 Hour Vital Signs Date Time Temp Pulse Resp B/P (MAP) Pulse Ox O2 Delivery O2 Flow Rate FiO2 01/01/19 14:00 97.4 60 18 138/63 96 Room Air 01/01/19 13:55 59 16 140/80 95 Room Air 01/01/19 13:50 59 15 150/71 97 Nasal Cannula 3 01/01/19 13:50 77 18 99 01/01/19 13:45 64 20 98 01/01/19 13:44 97.5 64 20 136/72 98 Nasal Cannula 3 01/01/19 12:00 98.9 75 19 136/87 (103) 97 01/01/19 09:10 Room Air 01/01/19 08:00 99.0 63 18 127/73 (91) 96 01/01/19 04:00 98.0 64 18 111/62 (78) 97 01/01/19 00:00 97.7 63 18 116/70 (85) 94 12/31/18 21:00 Room Air 12/31/18 20:00 98.5 70 18 95/54 (68) 94 Intake and Output 12/31/18 01/01/19 18:59 06:59 Intake Total 480 ml 2 ml Balance 480 ml 2 ml Intake Oral 480 ml Other 2 ml # Bowel Movements 1 Laboratory Tests 01/01/19 06:19: White Blood Count 5.0, Red Blood Count 3.84L, Hemoglobin 11.6L, Hematocrit 34.7L , Mean Corpuscular Volume 90, Mean Corpuscular Hemoglobin 30.3, Mean Corpuscular Hemoglobin Concent 33.5, Red Cell Distribution Width 11.9, Platelet Count 256, Mean Platelet Volume 5.6L, Neutrophils (%) (Auto) 60.5, Lymphocytes ( %) (Auto) 28.4, Monocytes (%) (Auto) 7.0, Eosinophils (%) (Auto) 3.3H, Basophils (%) (Auto) 0.8, Prothrombin Time 11.0, Prothromb Time International Ratio 1.0, Activated Partial Thromboplast Time 26, Sodium Level 141, Potassium Level 3.8, Chloride Level 106, Carbon Dioxide Level 30, Anion Gap 5, Blood Urea Nitrogen 11, Creatinine 0.8, Estimat Glomerular Filtration Rate , Glucose Level 88, Calcium Level 8.4L, CA 19-9 Antigen [Pending] Height (Feet): 5 Height (Inches): 1.00 Weight (Pounds): 135 General Appearance: WD/WN, no apparent distress, alert Neurologic: oriented x 3, responsive, depressed affect Sirena Santa MD Jan 01, 2019 16:02
--- NOTE | 2019-01-01 16:53 | General Progress Note ---
Assessment/Plan Assessment/Plan S: I am feeling weak O: appears comfortable. Sitting on her bed side. complains of mild abdominal pain PHYSICAL EXAMINATION: HEAD AND NECK: Atraumatic and normocephalic. Positive for the posttraumatic fracture lines and changes in the nasal region. CHEST: Clear to auscultation. HEART: S1, S2. Regular rate and rhythm. ABDOMEN: Soft. No organomegaly. MUSCULOSKELETAL: No gross focal motor deficit. NEUROLOGIC: Awake, alert, and oriented x3. Meds: reviewed and reconciled in the chart ASSESSMENT: 1. Acute encephalopathy, likely possibility of the cardiovascular insufficiency. 2. Nasal Septum fracture: post Closed reduction 3. Renal failure, age indeterminate. 3. Hypertension. 4. Psychiatric disorder. 5. Abnormal blood sugar. 6. Thrombocytopenia. 7. Right-sided chronic knee pain. 8. GI and DVT prophylaxis. Plan: Equivocal Pancreatic Mass GI workup in progress SNIF placement , high risk for fall Subjective Allergies: Coded Allergies: No Known Allergies (Unverified , 09/26/18) Objective Last 24 Hour Vital Signs Date Time Temp Pulse Resp B/P (MAP) Pulse Ox O2 Delivery O2 Flow Rate FiO2 01/01/19 16:00 98.2 69 19 121/74 (90) 95 01/01/19 14:00 97.4 60 18 138/63 96 Room Air 01/01/19 13:55 59 16 140/80 95 Room Air 01/01/19 13:50 59 15 150/71 97 Nasal Cannula 3 01/01/19 13:50 77 18 99 01/01/19 13:45 64 20 98 01/01/19 13:44 97.5 64 20 136/72 98 Nasal Cannula 3 01/01/19 12:00 98.9 75 19 136/87 (103) 97 01/01/19 09:10 Room Air 01/01/19 08:00 99.0 63 18 127/73 (91) 96 01/01/19 04:00 98.0 64 18 111/62 (78) 97 01/01/19 00:00 97.7 63 18 116/70 (85) 94 12/31/18 21:00 Room Air 12/31/18 20:00 98.5 70 18 95/54 (68) 94 Intake and Output 12/31/18 01/01/19 18:59 06:59 Intake Total 480 ml 2 ml Balance 480 ml 2 ml Intake Oral 480 ml Other 2 ml # Bowel Movements 1 Laboratory Tests 01/01/19 06:19: White Blood Count 5.0, Red Blood Count 3.84L, Hemoglobin 11.6L, Hematocrit 34.7L , Mean Corpuscular Volume 90, Mean Corpuscular Hemoglobin 30.3, Mean Corpuscular Hemoglobin Concent 33.5, Red Cell Distribution Width 11.9, Platelet Count 256, Mean Platelet Volume 5.6L, Neutrophils (%) (Auto) 60.5, Lymphocytes ( %) (Auto) 28.4, Monocytes (%) (Auto) 7.0, Eosinophils (%) (Auto) 3.3H, Basophils (%) (Auto) 0.8, Prothrombin Time 11.0, Prothromb Time International Ratio 1.0, Activated Partial Thromboplast Time 26, Sodium Level 141, Potassium Level 3.8, Chloride Level 106, Carbon Dioxide Level 30, Anion Gap 5, Blood Urea Nitrogen 11, Creatinine 0.8, Estimat Glomerular Filtration Rate , Glucose Level 88, Calcium Level 8.4L, CA 19-9 Antigen [Pending] Height (Feet): 5 Height (Inches): 1.00 Weight (Pounds): 135 Kamini Garcia MD Jan 01, 2019 16:53
--- NOTE | 2019-01-01 19:16 | NUR ---
HAND-OFF: Report given to Charlotte.
--- NOTE | 2019-01-01 19:16 | NUR ---
NURSE NOTES:Patient received from Cony L.V.N. Patient denies any pain at this time . no s/s distress noted . Lac g#20 H/L patent and intact . patient ambulatory with walker . call light with reach . bed in low position at all times . will continue will continue to monitor .
[2019-01-01] MEDS: Miralax 17gm pkt ORAL SCH (20:41)
--- NOTE | 2019-01-01 20:45 | Procedure Note ---
DATE OF PROCEDURE: 01/01/2019 SURGEON: Alberto Goyal M.D. PROCEDURE: Upper endoscopy with biopsy and endoscopic ultrasound with attempts for fine needle aspiration. ANESTHESIA: Per Dr. Aguirre. INSTRUMENT: Olympus adult flexible upper endoscope. INDICATION: Pancreatic cyst. REASON FOR PROCEDURE: The procedure, risks, benefits, and possible consequences, including hemorrhage, aspiration, perforation and infection, and alternative treatments, were explained to the patient/legal guardian by Dr. Alberto Goyal and the patient/legal guardian understood and accepted these risks. PROCEDURE IN DETAIL: After informed consent was obtained and the patient was adequately sedated, Olympus upper endoscope was advanced from the mouth into the second portion of duodenum and retroflexion was performed in the stomach. The patient had diffuse evidence of gastritis. Random biopsy from antrum was obtained to rule out H. pylori infection. At this time, the upper endoscope was retrieved and the EUS radial scope was introduced into the esophagus. Starting scanning at GE junction, we saw first left adrenal gland, which was normal. Celiac axis was evaluated without any obvious celiac axis lymphadenopathy. Pancreatic body and tail was examined while the scope was kept in the stomach. There was no evidence of any pancreatic duct dilatation. No evidence of hepatitis. The cyst that was seen in the head of the pancreas was not seen while we kept the scope in the body of the stomach. Then, the scope was advanced to the second portion of the duodenum and the head of the pancreas and ____ was examined. First, we saw gallbladder. There was some sludge in the gallbladder. No common bile duct or pancreatic duct dilatation. There was a 2.6 cm cyst in the uncinate process that had some filling defect in it. At this time, we decided to do FNA using a 22-gauge needle. Unfortunately, there was too much distance from the tip of the needle into the cyst. We had to go to too much of the pancreas to get through it. We poked at least 3 times, but each time needle deflated before getting into the cyst, so we decided at this time, not to try anymore. SUMMARY OF FINDINGS: 1. Gastritis, status post biopsy. 2. Gallbladder sludge. 3. A 2.6 cm cyst in the uncinate process with some filling defect in it. Unable to do FNA given the too much distance from the tip of the needle to the cyst. RECOMMENDATIONS: 1. Follow up biopsy results. 2. The patient will benefit from repeat imaging study either CT or MRI in 6 months and if the cyst continues to grow, we will recommend another attempt for EUS FNA. I want to thank, Dr. Garcia, for this kind referral. Alberto Goyal M.D. DR: JENNIFER JOB#: [id number] CC: Kamini Garcia M.D.; Fax#: [phone]
[2019-01-02] VITALS: BP 119/61
[2019-01-02 04:00] VITALS: BP 114/72
--- NOTE | 2019-01-02 07:19 | NUR ---
HAND-OFF: Report given to Nani GrahamPatient in stable condition.
[2019-01-02 08:00] VITALS: BP 127/71
--- NOTE | 2019-01-02 08:11 | NUR ---
NURSE NOTES: Patient received in stable condition, resting in bed. Denies respiratory distress or pain at this time. Call light placed within reach, will continue to monitor.
[2019-01-02] MEDS: LORazepam 1mg tab ORAL SCH ×3 (08:20→16:35)
[2019-01-02] MEDS: Tums 500mg ORAL SCH ×3 (08:20→16:35)
[2019-01-02] MEDS: Docusate 250mg cap ORAL SCH ×2 (08:20→16:35)
[2019-01-02] MEDS: Enoxaparin 40mg Inj SUBQ SCH (08:22)
[2019-01-02] MEDS: oxyCODONE 5mg IR tab ORAL PRN ×2 (08:28→14:33)
[2019-01-02] MEDS ORDERED: DULoxetine 30mg cap ORAL SCH (09:00)
[2019-01-02] MEDS: D5 1/2NS 1,000 ML IV SCH (10:55)
[2019-01-02 12:00] VITALS: BP 126/84
--- NOTE | 2019-01-02 13:20 | NUR ---
CASE MANAGEMENT:DCPNOTE UPON DISCHARGE PATIENT WILL TRANSFER TO [facility] [phone] SKILLED [facility] [facility] [phone] CALL . NO ANSWER . LEFT MESSAGE TRANSPORTATION VIA [facility] [id number] 15:00
[2019-01-02] MEDS ORDERED: ACETAMINOPHEN325 M1 ORAL (13:21)
[2019-01-02] MEDS ORDERED: LOVENOX10 M4 SUBQ (13:23)
[2019-01-02] MEDS ORDERED: MIRALAX17 G2 ORAL (13:29)
[2019-01-02] MEDS ORDERED: D5 1/2NS 1000ml IV ONE (14:36)
[2019-01-02 16:00] VITALS: BP 127/82
--- NOTE | 2019-01-02 17:12 | NUR ---
NURSE NOTES: Patient discharged to [facility] accompanied by ambulance personnel. Belongings reviewed and confirmed with the patient by bedside. Patient noted to be in stable condition, alert and oriented, with steady gait with walker. IV safely removed and covered with gauze and tape. Report given to Peggy MONTIEL at [facility]. Vital signs stable.
--- NOTE | 2019-01-02 20:20 | General Progress Note ---
Assessment/Plan Assessment/Plan Assessment/Plan Problems: (1) Pancreatic lesion ICD Codes: K86.9 - Disease of pancreas, unspecified SNOMED: 7711489 (2) Abdominal pain of unknown etiology ICD Codes: R10.9 - Unspecified abdominal pain SNOMED: 681372103 (3) Constipation ICD Codes: K59.00 - Constipation, unspecified SNOMED: 30409919 (4) Unsteady gait ICD Codes: R26.81 - Unsteadiness on feet SNOMED: 899890675, 26735413 Status: stable, unchanged Assessment/Plan Abdominal pelvis CT reviewed. Possible mild enteritis involving lower abdominal small bowel. Incidental 2.5 x 2 cm hypodensity, probably cystic within the uncinate process of the pancreas. Lipase levels are within normal limits Abdominal MRI reviewed >> Two nonenhancing well-circumscribed cystic foci within the pancreas measuring 2.5 cm in the uncinate process and 1 cm in the head of the pancreas. Colace 250 mg twice daily, will add MiraLAX nightly PPI follow labs, ca19-9 will need repeat imaging q6 months to monitor pancreatic cyst We will follow with additional recommendations Subjective Allergies: Coded Allergies: No Known Allergies (Unverified , 09/26/18) Subjective Feels better took a shower eating OK pain gone for d/c today Objective Last 24 Hour Vital Signs Date Time Temp Pulse Resp B/P (MAP) Pulse Ox O2 Delivery O2 Flow Rate FiO2 01/02/19 16:00 98.2 68 20 127/82 (97) 100 01/02/19 12:00 98.8 64 18 126/84 (98) 100 01/02/19 09:50 99.5 01/02/19 09:00 Room Air 01/02/19 08:00 100.0 69 18 127/71 (89) 95 01/02/19 04:00 98.6 63 18 114/72 (86) 97 01/02/19 00:00 98.5 67 18 119/61 (80) 96 01/01/19 21:00 Room Air Intake and Output 01/01/19 01/02/19 18:59 06:59 Intake Total 450 ml 800 ml Output Total 0 ml Balance 450 ml 800 ml Intake Oral 800 ml IV Total 450 ml Output Estimated Blood Loss 0 ml # Voids 5 4 Height (Feet): 5 Height (Inches): 1.00 Weight (Pounds): 135 Objective Elderly WW NCAT supple CTA RRR abd soft NT ND no edema non focal Parish Patino MD Jan 02, 2019 20:20
--- NOTE | 2019-01-03 00:38 | General Progress Note ---
Assessment/Plan Problem List: (1) MDD (major depressive disorder), recurrent episode, moderate ICD Codes: F33.1 - Major depressive disorder, recurrent, moderate SNOMED: 29559815, 552123173 Assessment/Plan cont current meds provided ro/st increase Cymbalta Subjective Neurologic/Psychiatric: Reports: anxiety, depressed Allergies: Coded Allergies: No Known Allergies (Unverified , 09/26/18) Subjective the pt cont to be anxious and depressed Objective Last 24 Hour Vital Signs Date Time Temp Pulse Resp B/P (MAP) Pulse Ox O2 Delivery O2 Flow Rate FiO2 01/02/19 16:00 98.2 68 20 127/82 (97) 100 01/02/19 12:00 98.8 64 18 126/84 (98) 100 01/02/19 09:50 99.5 01/02/19 09:00 Room Air 01/02/19 08:00 100.0 69 18 127/71 (89) 95 01/02/19 04:00 98.6 63 18 114/72 (86) 97 Intake and Output 01/02/19 01/03/19 18:59 06:59 Intake Total 320 ml Balance 320 ml Intake Oral 320 ml Height (Feet): 5 Height (Inches): 1.00 Weight (Pounds): 135 General Appearance: WD/WN, no apparent distress, alert Neurologic: oriented x 3, responsive, depressed affect Sirena Santa MD Jan 03, 2019 00:38
--- NOTE | 2019-01-05 11:19 | Discharge Summary ---
Discharge Summary Discharge Summary _ DATE OF ADMISSION: 12/29/2018 DATE OF DISCHARGE: 01/02/2019 DISCHARGED BY: Dr. Garcia REASON FOR ADMISSION: 78 years old female with past medical history of hypertension, urinary incontinence, right knee surgery with chronic right knee pain, psychiatric disorder, presented with abdominal pain for few weeks. Patient also reported balance problem after right knee surgery. Patient denied any loss of consciousness. Patient denied nausea, vomiting, diarrhea ,constipation. Patient complained of the pain in the right knee. Upon evaluation vital signs were stable. Laboratory workup revealed no leukocytosis , stable hemoglobin and hematocrit. Stable electrolytes and renal parameters. Glucose 96. Albumin 3.2. Stable LFT and lipase. Urinalysis revealed no evidence of UTI. X ray right knee revealed right knee hardware in place. No dislocation, no soft tissue swelling ,no fracture. X-ray of the left knee revealed severe degenerative disc disease. CT of the abdomen and pelvis revealed possible mild enteritis , involving the lower abdominal small bowel. Incidental 2.5 x 2 cm hypodensity, probably cystic within the uncinate process of the pancreas. Findings could be inflammatory or neoplastic. Further characterization and evaluation with MRI was recommended by radiology. Patient was admitted for further management, CONSULTANTS: GI specialist Dr. Goyal psychiatrist [facility]RSE: Patient was admitted to medical surgical floor. GI consult was requested. Patient undergone MRI of the abdomen , which revealed two nonenhancing well- circumscribed cystic foci within the pancreas measuring 2.5 cm in the uncinate process and 1 cm in the head of the pancreas. Based on the appearance, a specific diagnosis was not possible. Serous cystic neoplasm was still possible, but these usually have calcification or central scar, neither of which was seen. Consider inflammatory pseudocyst if the patient had a history of pancreatitis. Otherwise, the main differential consideration include mucinous cystic neoplasm versus side branch intraductal papillary mucinous neoplasm (IPMN). Recommended follow-up CT or MRI every 6 months. The larger 2.5 cm cystic focus may be amenable to aspiration under endoscopic ultrasound, which usually reserved for lesions greater than 3 cm in size. GI specialist followed. Patient started on diet as tolerated. Bowel regimen instituted. Patient started on GI prophylaxis with PPI. Patient undergone upper endoscopy with biopsy and endoscopic ultrasound with attempts for fine-needle aspiration on 01/01. Procedure revealed gastritis, status post biopsy; gallbladder sludge, 2.6 cm cyst in the uncinate process with some filling defects . Unable to do fine-needle aspiration , given that too much distance bit from the tip of the needle to the cyst. Stomach antrum biopsy revealed evidence of mild chronic gastritis. GI specialist recommended to repeat imaging every 6 months to monitor pancreatic cyst. If it continues to grow , then another attempt for endoscopic ultrasound with fine-needle aspiration will be recommended. CA-19-9 was within normal range. Lilase and LFT stable. Blood pressure was closely monitored and remained stable without any antihypertensive regimen. Renal parameters and electrolytes were closely monitored. Nephrotoxins were avoided. Renal parameters remained stable. Pain management was addressed. DVT prophylaxis provided. Supportive care provided. Psychiatrist followed. Psychiatrist diagnosed patient with major depressive disorder. Psychiatrist recommended to continue current medication , but increase dose of Cymbalta. Reality orientation and supportive therapy provided. Patient clinically stabilized, abdominal pain resolved . Patient was able to tolerate diet . Patient was stable for discharge to longterm facility. FINAL DIAGNOSES: Pancreatic lesion Possible mild enteritis, involving small bowel Constipation Gastritis Abdominal pain Right-sided chronic knee pain Hypertension History of acute renal failure History of nasal septal fracture, status post post closed reduction Major depressive disorder, recurrent episode, moderate DISCHARGE MEDICATIONS: See Medication Reconciliation list. DISCHARGE INSTRUCTIONS: Patient was discharged to the longterm facility. Follow up with medical doctor at the facility. I have been assigned to dictate discharge summary for this account. I was not involved in the patient's management. Laila Donahue NP Jan 05, 2019 11:19
== END 2019-01-02 17:19 | DRG 439 ==
LOC: EMR 13:10 → 3E 13:20 → EDBEDREQ 14:31
PROC: 0DB78ZX Excision of Stomach, Pylorus, Via Natural or Artificial Opening Endoscopic, Diagnostic (ICD-10-PCS; principal; 2019-01-01 13:00)
DX: K86.9 Disease of pancreas, unspecified (principal); F33.1 Major depressive disorder, recurrent, moderate; G93.49 Other encephalopathy; I10 Essential (primary) hypertension; R42 Dizziness and giddiness; D69.6 Thrombocytopenia, unspecified; G89.29 Other chronic pain; M25.561 Pain in right knee; K52.89 Other specified noninfective gastroenteritis and colitis; K59.00 Constipation, unspecified; K29.70 Gastritis, unspecified, without bleeding; K86.2 Cyst of pancreas; K82.8 Other specified diseases of gallbladder; R26.81 Unsteadiness on feet; F99 Mental disorder, not otherwise specified; M62.3 Immobility syndrome (paraplegic); R29.6 Repeated falls
CPT/HCPCS: 36415; 74177; 74183; 80048; 80053; 81003; 83690; 85025; 85610; 85730; 94003; 94150; 96374; 99285; A9585

== ENCOUNTER 2019-03-03 08:36 | Outpatient (CLI) | payer MEDICARE, MEDICAID ==
[~2019-03-03 08:36] MED LIST changes: +ACETAMINOPHEN325 M1 ORAL; +CALCIUM500 M3 PO; +CYMBALTA30 MG ORAL; +DIPHENHYDRAMINE25 M1 ORAL; +DOCUSATE CALCI240 MG PO; +LINZESS145 MCG PO; +LORAZEPAM1 MG ORAL; +LOVENOX10 M4 SUBQ; +MIRALAX17 G2 ORAL; +OXYCODONE HCL10 MG ORAL; +PANTOPRAZOLE SO40 MG ORAL; +SEROQUEL100 MG ORAL; +TEMAZEPAM15 MG ORAL; +ZANTAC150 MG ORAL
--- NOTE | 2019-03-03 10:54 | Diagnostic Imaging Report ---
Indication: Abdominal pain 78-year-old female pancreatic lesions. Follow-up Technique: Continuous helical transaxial imaging of the abdomen and pelvis was obtained from the lung bases to the pubic symphysis during intravenous contrast administration. Coronal 2-D reformats were also obtained. Study obtained in a Siemens sensation [address] Automatic Exposure Control was utilized. Total Dose length Product (DLP): 1581.[address] Dose Index Volume (CTDIvol): 19.11,20.15 mGy Comparison: CT 12/29/2018, MRI 12/30/2018 Findings: Previous examinations the demonstrated 2 cystic lesions in the pancreas. The larger of the 2 in the uncinate process appears larger on the current study measuring 3.1 x 2.4 x 2.3 cm. Consider aspiration by endoscopic ultrasound. No enhancement of this cystic focus demonstrated on the current study. A second approximately 8 mm cystic focus noted in the head of the pancreas adjacent to the portal confluence appears grossly unchanged from the previous examination, both CT and MR. The remainder the pancreas is unremarkable. The gallbladder is contracted. There is no biliary ductal dilatation. There are tiny hypodensities within both kidneys some too small to characterize grossly unchanged from the last examination. There is a left anterior renal cyst which is unchanged in appearance and size. The lung bases are clear. The liver and spleen are unremarkable. There is no free fluid. IMPRESSION: Interval enlargement of a 3.1 x 2.4 x 2.3 cm cystic lesion in the uncinate process of the pancreas. Recommend endoscopic ultrasound evaluation and possible aspiration. This lesion is not amenable to percutaneous biopsy. Approximately 8 mm cystic focus within the head of the pancreas unchanged. Other incidental findings as above The CT scanner at [facility] is accredited by the [employer] and the scans are performed using dose optimization techniques as appropriate to a performed exam including Automatic Exposure control.
== END 2019-03-03 10:36 | disposition home or self-care (01) ==
LOC: CAT 08:36
DX: R10.9 Unspecified abdominal pain (principal); K86.2 Cyst of pancreas
CPT/HCPCS: 74177; Q9967